=== PATIENT | male | born 1980 | race Caucasian/White ===

== ENCOUNTER → 2018-04-22 11:46 | Outpatient (CLI) | payer OTHER, SELFPAY ==
[2018-04-22 13:14] LABS: Basophils % 0.4 % (0.1-2.0); Eosinophils % 0.6 % (0.1-12.0); Hematocrit 39.6 % (42.0-52.0); Hemoglobin 13.7 g/dL (14.1-18.0); Lymphocytes # 1.3 K/mm3 (0.7-4.5); Mean Corpuscular HGB Conc 34.6 g/dL (31.8-35.4); Mean Corpuscular Hemoglobin 35.9 pg (27.0-31.2); Mean Corpuscular Volume 103.9 fl (80-94); Mean Platelet Volume 7.1 fl (7.4-10.4); Monocytes # 0.4 K/mm3 (0.1-1.0); Monocytes % 6.9 % (1.7-9.3); Neutrophils # 3.8 K/mm3 (1.8-7.8); Neutrophils % 69.1 % (37.0-80.0); Platelet Count 257 K/mm3 (142-424); Red Blood Count 3.81 M/mm3 (4.60-6.20); Red Cell Distribution Width 13.4 % (11.5-17.5); White Blood Count 5.5 K/mm3 (4.8-10.8)
[2018-04-22 14:23] LABS: Alanine Aminotransferase 184 U/L (12-78); Albumin Level 3.9 gm/dL (3.4-5.0); Alkaline Phosphatase 169 U/L (46-116); Anion Gap 18.4 mEq/L (5-15); Aspartate Amino Transferase 200 U/L (15-37); Bilirubin,Total 0.7 mg/dL (0.2-1.0); Blood Urea Nitrogen 5 mg/dL (7-18); Calcium 8.7 mg/dL (8.5-10.1); Carbon Dioxide 25 mmol/L (21.0-32.0); Chloride 102 mmol/L (98-107); Chol/HDL Ratio 4.5 (1-3.5); Cholesterol 171 mg/dL (140-200); Estimated Glomerular Filt Rate 95 ml/min (>60); Free T4 (Free Thyroxine) 1.08 ng/dl (0.76-1.46); GFR (African American) 115 ML/MIN (>60); Globulin 4.1 gm/dl (1.3-3.2); Glucose 158 mg/dL (74-106); HDL Cholesterol 38 mg/dL (27-67); LDL Cholesterol 106 mg/dL (0-130); Potassium 3.4 mmoL/L (3.5-5.1); Sodium 142 mmol/L (136-145); Thyroid Stimulating Hormone 1.81 uIU/ml (0.358-3.740); Triglycerides 137 mg/dL (30-200); Uric Acid 9.7 mg/dL (2.6-7.2); VLDL Cholesterol 27 mg/dL (0-40)
[2018-04-22 14:42] LABS: C-Reactive Protein < 0.2 mg/L (0.0-0.9)
[2018-04-22 15:18] LABS: Erythrocyte Sedimentation Rate 25 mm/hr (0-15)
[2018-04-24 07:50] LABS: Hemoglobin A1C 5.4 % (0.0-7.0)
[2018-04-25 08:25] LABS: Iron 219 ug/dL (38-169); UIBC 137 ug/dL (111-343)
[2018-04-25 09:21] LABS: Hep A Ab, IgM Negative (Negative); Hepatitis B Core Antibody IgM Negative (Negative); Hepatitis B Surface Antigen Negative (Negative)
[2018-04-26 13:03] LABS: Vitamin D 25 Hydroxy 43.1 ng/mL (30.0-100.0)
[2018-04-26 13:04] LABS: Hepatitis C Antibody 0.2 s/co ratio (0.0-0.9); Iron Saturation 62 % (15-55)
== END ==
PROVIDERS: Visit Provider Nurse Practitioner Family
DX: M25.50 Pain in unspecified joint (principal); R53.83 Other fatigue; M10.9 Gout, unspecified
CPT/HCPCS: 36415; 80053; 80061; 80074; 82652; 83036; 83540; 83550; 84439; 84443; 84550; 85025; 85651; 86140

== ENCOUNTER 2020-07-28 11:36 | Emergency (ER) | payer OTHER, SELFPAY ==
[2020-07-28 12:04] VITALS: BP 139/93; PULSE 84; RESP 16; TEMP 37; O2SAT 98; BMI 25.8
[2020-07-28 12:05] LABS: Apearance,Urine Clear (Clear); Bilirubin,Urine Negative (Negative); Blood, Urine Negative (Negative); Color,Urine Yellow (Yellow); Glucose,Urine (UA) Negative (Negative); Ketones,Urine Negative (Negative); Protein,Urine Negative (Negative); UTC Leukocyte Esterase,Urine Negative (Negative); UTC Nitrate,Urine Negative (Negative); Urobilinogen,Urine 2 EU/dl (0.2)
--- NOTE | 2020-07-28 12:37 | XR_ITS ---
PROCEDURE: XR CHEST 2V CLINICAL HISTORY: chest pain Left-sided chest pain COMPARISON: No exams were available for comparison FINDINGS: The cardiomediastinal silhouette and pulmonary vascularity are within normal limits. The lungs are clear without infiltrates, suspicious nodules, or pleural effusions. No acute bony abnormalities. IMPRESSION: No acute findings. Dictated by: Eduar Carias MD 07/28/2020 13:48 Eduar Carias MD in [place] 07/28/2020 13:48
--- NOTE | 2020-07-28 13:02 | HMH.EDUTC ---
[facility] [place]ression: Epigastric abdominal pain Disposition: Home, Self-Care Condition on Discharge: Good Instructions: DI for Abdominal Pain-Adult, DI for Acute Abdominal Pain Additional Instructions: Drink plenty of fluids. Take tylenol or ibuprofen for pain or fever. Take the medications as directed. Follow up with your regular doctor. GO TO THE ER FOR ANY WORSENING SYMPTOMS Prescriptions: Ondansetron [Zofran 4mg ODT] 4 mg PO Q8HP PRN #20 tab.rapdis PRN Reason: Nausea Transmission Status: Received by [facility] Famotidine [Pepcid 20mg Tablet] 20 mg PO DAILY 30 Days #30 tab Transmission Status: Received by [facility] Referrals: PCP,No [Primary Care Provider] - Forms: Work/School Release Time of Disposition: 13:06 Medical Decision Making - Medical Records Medical records reviewed: No: I reviewed the patient's medical records. - [place]ko Inquiry Pt receiving controlled substance: No Vital Signs: 07/28/20 12:04 07/28/20 13:21 Temperature 98.6 F 98.6 F Temperature Source Oral Oral Pulse Rate 84 Pulse Rate [Right Radial] 84 Respiratory Rate 16 16 Blood Pressure 139/93 H Blood Pressure [Right Arm] 139/93 H Blood Pressure Mean [Right Arm] 108 02 Sat by Pulse Oximetry 98 Oxygen Delivery Method Room Air Room Air - Lab Data Lab results reviewed: Yes: I reviewed the patient's lab results. Lab Results 07/28/20 12:04: Urine Color Yellow, Urine Appearance Clear, Urine pH 6.0, Ur Specific [place] 1.020, Urine Protein Negative, Urine Glucose (UA) Negative, Urine Ketones Negative, Urine Blood Negative, Urine Nitrate Negative, Urine Bilirubin Negative, Urine Urobilinogen 2, Ur Leukocyte Esterase Negative 07/28/20 12:54: WBC 4.4 L, RBC 4.51 L, Hgb 14.5, Hct 42.5, MCV 94.1 H, MCH 32.2 H, MCHC 34.2, RDW 12.7, Plt Count 317, MPV 7.2 L, Neut % (Auto) 54.9, Lymph % (Auto) 33.5, [place] % (Auto) 7.1, Eos % (Auto) 3.7, Baso % (Auto) 0.8, Neut # (Auto) 2.4, Lymph # (Auto) 1.5, [place] # (Auto) 0.3, Eos # (Auto) 0.2, Baso # (Auto) 0.0 07/28/20 12:54: Sodium 141, Potassium 4.0, Chloride 106, Carbon Dioxide 24, Anion Gap 15.0, BUN 13, Creatinine 0.90, Estimated Creat Clear 127, Estimated GFR 94, Est GFR ( Amer) 114, Glucose 96, Calcium 9.7, Total Bilirubin 0.5, AST 29, ALT 27, Alkaline Phosphatase 80, Total Protein 8.7 H, Albumin 5.1 H, Globulin 3.6 H, Albumin/Globulin Ratio 1.4, Amylase 62, Lipase 56 Result diagrams: 07/28/20 12:54 07/28/20 12:54 Medical Decision Narrative: He refused to be transferred to the er for further evaluation. [facility] [place] - General Stated complaint: sharp pain left side under ribs Time Seen by Provider: 07/28/20 13:02 Mode of Arrival: Ambulatory Source of Information: Patient Limitations: No Limitations Description of Symptoms (Recalled from Triage Doc. by RN): pain in left side, just under ribcage HEENT Symptoms (Recalled from RN notes): No Resp Symptoms (Recalled from RN notes): No Skin Symptoms (Recalled from RN notes): No MS Symptoms (Recalled from RN notes): Yes Functional Status (Recalled from RN notes): na - History of Present Illness Provider Complaint: He c/o epigastric abdominal pain on and off for the past 1 month. He has had some nausea at times also. He denies any diarrhea or constipation. - Related Data Previous Rx's Medication Instructions Recorded Naproxen [Naproxen 500mg tab] 500 mg PO BID PRN #20 tablet 05/10/18 allopurinol 100 mg tablet 100 mg PO DAILY #30 tab 09/06/18 colchicine 0.6 mg tablet 0.6 mg PO BID #30 tab 09/06/18 Famotidine [Pepcid 20mg Tablet] 20 mg PO DAILY 30 Days #30 tab 07/28/20 Ondansetron [Zofran 4mg ODT] 4 mg PO Q8HP PRN #20 tab.rapdis 07/28/20 Allergies Allergy/AdvReac Type Severity Reaction Status Date / Time No Known Allergies Allergy Verified 04/13/18 10:37 - Worker's Comp Is this a Worker's Comp case?: No H History - Hepatitis A Screen [place]
[2020-07-28 13:21] VITALS: BP 139/93; PULSE 84; RESP 16; TEMP 37; O2SAT 98
[2020-07-28 13:29] LABS: Basophils % 0.8 % (0.1-2.0); Eosinophils # 0.2 K/mm3 (0.0-0.4); Eosinophils % 3.7 % (0.1-12.0); Hematocrit 42.5 % (42.0-52.0); Hemoglobin 14.5 g/dL (14.1-18.0); Lymphocytes # 1.5 K/mm3 (0.7-4.5); Lymphocytes % 33.5 % (10-50); Mean Corpuscular HGB Conc 34.2 g/dL (31.8-35.4); Mean Corpuscular Hemoglobin 32.2 pg (27.0-31.2); Mean Corpuscular Volume 94.1 fl (80-94); Mean Platelet Volume 7.2 fl (7.4-10.4); Monocytes # 0.3 K/mm3 (0.1-1.0); Monocytes % 7.1 % (1.7-9.3); Neutrophils # 2.4 K/mm3 (1.8-7.8); Neutrophils % 54.9 % (37.0-80.0); Platelet Count 317 K/mm3 (142-424); Red Blood Count 4.51 M/mm3 (4.60-6.20); Red Cell Distribution Width 12.7 % (11.5-17.5); White Blood Count 4.4 K/mm3 (4.8-10.8)
[2020-07-28 14:04] LABS: Alanine Aminotransferase 27 U/L (12-78); Albumin Level 5.1 g/dl (3.5-5.0); Albumin/Globulin Ratio 1.4 (1.1-1.8); Alkaline Phosphatase 80 U/L (38-126); Amylase 62 U/L (30-110); Aspartate Amino Transferase 29 U/L (17-59); Bilirubin,Total 0.5 mg/dl (0.2-1.3); Blood Urea Nitrogen 13 mg/dl (9-20); Calcium 9.7 mg/dl (8.4-10.2); Carbon Dioxide 24 mmol/L (22.0-30.0); Chloride 106 mmol/L (98-107); Creatinine Clearance Estimated 127 mL/min (50-200); Estimated Glomerular Filt Rate 94 ml/min (>60); GFR (African American) 114 ML/MIN (>60); Globulin 3.6 g/dL (1.3-3.2); Glucose 96 mg/dl (74-100); Lipase 56 U/L (23-300); Sodium 141 mmol/L (136-145); Total Protein,Serum 8.7 g/dl (6.3-8.2)
== END 2020-07-28 13:22 | disposition home or self-care (01) ==
PROVIDERS: Emergency Provider Nurse Practitioner Family
DX: R10.13 Epigastric pain (principal); Z87.891 Personal history of nicotine dependence
CPT/HCPCS: 71046; 80053; 81003; 82150; 83690; 85025; 99202; G0463

== ENCOUNTER 2020-09-06 12:08 | Emergency (ER) | payer OTHER, SELFPAY ==
[2020-09-06 13:10] VITALS: BP 141/96; PULSE 82; RESP 19; TEMP 37; O2SAT 98; BMI 25.1
--- NOTE | 2020-09-06 13:49 | HMH.EDUTC ---
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, right wrist Disposition: Home, Self-Care Condition on Discharge: Good Instructions: DI for Gout, Higher Vitamin C Intake Associated With Lower Risk of Gout Prescriptions: allopurinoL [Allopurinol 100mg tablet] 100 mg PO DAILY #30 tab Prescription Printed predniSONE [Prednisone 20mg Tab] 20 mg PO BID #10 tab Prescription Printed Referrals: Provider,Referral, MD [Primary Care Provider] - Time of Disposition: 13:57 Medical Decision Making - Cheko Inquiry Pt receiving controlled substance: No Vital Signs: 09/06/20 13:10 Temperature 98.6 F Temperature Source Oral Pulse Rate [Right Brachial] 82 Respiratory Rate 19 Blood Pressure [Right Arm] 141/96 H Blood Pressure Mean [Right Arm] 111 Blood Pressure Source [Right Arm] Automatic Cuff Blood Pressure Position [Right Arm] Sitting 02 Sat by Pulse Oximetry 98 Oxygen Delivery Method Room Air Orders (Tests/Meds): ED MEDICATIONS Discontinued Medications Generic Name Dose Route Start Last Admin Trade Name Freq PRN Reason Stop Dose Admin Dexamethasone Sodium Phosphate 4 mg 09/06/20 13:46 Dexamethasone 4mg/Ml 1ml Vial IM 09/06/20 13:47 ONCE ONE Ketorolac Tromethamine 30 mg 09/06/20 13:46 Ketorolac 30mg/Ml Vial IM 09/06/20 13:47 ONCE ONE [facility] [place] - General Chief complaint: Urgent [facility] Stated complaint: Rt hand pain Time Seen by Provider: 09/06/20 13:50 Mode of Arrival: Ambulatory Source of Information: Patient Limitations: No Limitations Description of Symptoms (Recalled from Triage Doc. by RN): PATIENT C/O GOUT IN RIGHT ARM AND HAND X 2 WEEKS HEENT Symptoms (Recalled from RN notes): No Resp Symptoms (Recalled from RN notes): No Skin Symptoms (Recalled from RN notes): No MS Symptoms (Recalled from RN notes): Yes Functional Status (Recalled from RN notes): WNL - History of Present Illness Provider Complaint: 39 yr old male presents for rt hand and arm pain. pt states no injury and hx of gout. pt states he did take meds for gout but his pcp left so his script ran out 3 days ago. - Related Data Previous Rx's Medication Instructions Recorded Naproxen [Naproxen 500mg tab] 500 mg PO BID PRN #20 tablet 05/10/18 colchicine 0.6 mg tablet 0.6 mg PO BID #30 tab 09/06/18 Famotidine [Pepcid 20mg Tablet] 20 mg PO DAILY 30 Days #30 tab 07/28/20 Ondansetron [Zofran 4mg ODT] 4 mg PO Q8HP PRN #20 tab.rapdis 07/28/20 allopurinoL [Allopurinol 100mg 100 mg PO DAILY #30 tab 09/06/20 tablet] predniSONE [Prednisone 20mg 20 mg PO BID #10 tab 09/06/20 Tab] Allergies Allergy/AdvReac Type Severity Reaction Status Date / Time No Known Allergies Allergy Verified 04/13/18 10:37 - Worker's Comp Is this a Worker's Comp case?: No [facility] History - Hepatitis A Screen Drug use history?: No High risk sexual behaviors?: No History of sexually transmitted infection?: No Currently employed?: No Childcare worker?: No Do you have indoor plumbing?: Yes Do you have electricity?: Yes Attestation statement:: This patient has been screened for Hepatitis A risk factors. I have reviewed the patient's past medical history: Yes Medical History: Reports:: Hypertension Other Surgeries: Yes: No Previous Surgery Amputation: No Fractures: Yes - Social History Smoking Status: Current every day smoker Tobacco Type: cigarettes # Packs/Day (cigarettes): 1 Alcohol Intake: current Alcohol Intake Frequency:: 3 or more drinks per day Occupational Status: other Family Hx:: Diabetes, Hypertension, Asthma ROS Obtained: Yes Systems reviewed as appropriate & no additional complaints - Constitutional Constitutional: Reports system reviewed and no additional complaints, except as docu, Denies fever(s) - Eyes Eyes: Reports syst
[2020-09-06 14:00] VITALS: BP 141/96; PULSE 82; RESP 19; TEMP 37; O2SAT 98
== END 2020-09-06 14:02 | disposition home or self-care (01) ==
PROVIDERS: Emergency Provider Nurse Practitioner Family
DX: M10.431 Other secondary gout, right wrist (principal); F17.210 Nicotine dependence, cigarettes, uncomplicated; Z79.899 Other long term (current) drug therapy
CPT/HCPCS: 96372; 99202; G0463

== ENCOUNTER 2020-09-15 21:36 | Emergency (ER) | payer OTHER, SELFPAY ==
[2020-09-15 21:50] VITALS: BP 140/81; PULSE 108; RESP 17; TEMP 37.1; O2SAT 96; BMI 29.0
--- NOTE | 2020-09-15 22:02 | HMH.EDGENADL ---
ED Disposition Clinical Impression: Gout attack Qualifiers: Gout site: hand Gout etiology: unspecified cause Laterality: right Qualified Code(s): M10.9 - Gout, unspecified Disposition: Home, Self-Care Condition on Discharge: Good Instructions: DI for Gout Additional Instructions: use meds and see pcp for follo wup Prescriptions: Colchicine [Colcrys 0.6mg tablet] 0.6 mg PO DIRECTED #10 tab Transmission Status: Pending to [facility] predniSONE [Prednisone 20mg Tab] 20 mg PO BID #10 tab [facility] Status[facility] Referrals: Provider,Referral, [Primary Care Provider] - - Critical Care Critical Care Time: No Attestation: On 09/15/20, the high probability of a clinically significant, sudden or life threatening deterioration of the following system(s) required my full and direct attention, intervention and personal management. The time I documented below is in addition to time spent performing reported procedures but includes the following listed in this critical care notation. Medical Decision Making - Medical Records Medical records reviewed: Yes: I reviewed the patient's medical records. - [place]ko Inquiry Pt receiving controlled substance: No Vital Signs: 09/15/20 21:50 Temperature 98.8 F Temperature Source Oral Pulse Rate [Right Brachial] 108 H Respiratory Rate 17 Blood Pressure [Right Arm] 140/81 Blood Pressure Mean [Right Arm] 100 Blood Pressure Source [Right Arm] Automatic Cuff Blood Pressure Position [Right Arm] Sitting 02 Sat by Pulse Oximetry 96 Oxygen Delivery Method Room Air - Lab Data Lab results reviewed: Yes: I reviewed the patient's lab results. Lab Results 09/15/20 22:00: WBC 7.9, RBC 4.05 L, Hgb 12.8 L, Hct 37.4 L, MCV 92.5, MCH 31.7 H, MCHC 34.3, RDW 12.9, Plt Count 326, MPV 6.9 L, Neut % (Auto) 67.8, Lymph % (Auto) 20.7, [place] % (Auto) 7.5, Eos % (Auto) 3.7, Baso % (Auto) 0.3, Neut # (Auto) 5.4, Lymph # (Auto) 1.6, [place] # (Auto) 0.6, Eos # (Auto) 0.3, Baso # (Auto) 0.0 06/07/21 22:00: Sodium 135 L, Potassium 3.4 L, Chloride 101, Carbon Dioxide 25, Anion Gap 12.4, BUN 9, Creatinine 0.70, Estimated Creat Clear 164, Estimated GFR 126, Est GFR ( Amer) 152, Glucose 103 H, Calcium 8.9, Total Bilirubin 0.7, AST 28, ALT 23, Alkaline Phosphatase 106, C-Reactive Protein 51.9 H, Total Protein 7.8, Albumin 4.5, Globulin 3.3 H, Albumin/Globulin Ratio 1.4 Result diagrams: 09/15/20 22:00 09/15/20 22:00 Orders (Tests/Meds): ED MEDICATIONS Discontinued Medications Generic Name Dose Route Start Last Admin Trade Name Purvi PRN Reason Stop Dose Admin Ketorolac Tromethamine 30 mg 09/15/20 22:04 09/15/20 22:08 Ketorolac 30mg/Ml Vial IV 09/15/20 22:05 30 mg ONCE ONE Administration Methylprednisolone Sodium Succinate 125 mg 09/15/20 22:04 09/15/20 22:08 Methylprednisolone Sod Succ 125mg Vial IV 09/15/20 22:05 125 mg ONCE ONE Administration ORDERS Category Date Time Status C-Reactive Protein Stat Lab 09/15/20 22:00 Results Complete Blood Count Auto Diff Stat Lab 09/15/20 22:00 Results Comprehensive Metabolic Panel Stat Lab 09/15/20 22:00 Results Erythrocyte Sedimentation Rate Stat Lab 09/15/20 22:00 Results Procalcitonin Stat Lab 09/15/20 22:00 Results Uric Acid Stat Lab 09/15/20 22:00 Results Medical Decision Narrative: hx of gout and has acute episode General Adult HPI - General Chief complaint: PAIN Stated complaint: r hAND SWOLLEN Time Seen by Provider: 09/15/20 22:02 Mode of Arrival: Family Vehicle Source of Information: Patient, Medical Record Limitations: No Limitations Description of Symptoms (Recalled from ER Triage Doc. by RN): right hand swelling from gout x 1 month; received steroid shot last week and improved slightly but feels he was prescribed the wrong pills to take afterwards because they didn't help - History of Present Illness HPI narrative: acute swelling pain rt
[2020-09-15 22:22] LABS: Chloride 101 mmol/L (98-107); Potassium 3.4 mmoL/L (3.5-5.1); Sodium 135 mmol/L (136-145)
[2020-09-15 22:24] LABS: Basophils % 0.3 % (0.1-2.0); Eosinophils # 0.3 K/mm3 (0.0-0.4); Eosinophils % 3.7 % (0.1-12.0); Hematocrit 37.4 % (42.0-52.0); Hemoglobin 12.8 g/dL (14.1-18.0); Lymphocytes # 1.6 K/mm3 (0.7-4.5); Lymphocytes % 20.7 % (10-50); Mean Corpuscular HGB Conc 34.3 g/dL (31.8-35.4); Mean Corpuscular Hemoglobin 31.7 pg (27.0-31.2); Mean Corpuscular Volume 92.5 fl (80-94); Mean Platelet Volume 6.9 fl (7.4-10.4); Monocytes # 0.6 K/mm3 (0.1-1.0); Monocytes % 7.5 % (1.7-9.3); Neutrophils # 5.4 K/mm3 (1.8-7.8); Neutrophils % 67.8 % (37.0-80.0); Platelet Count 326 K/mm3 (142-424); Red Blood Count 4.05 M/mm3 (4.60-6.20); Red Cell Distribution Width 12.9 % (11.5-17.5); White Blood Count 7.9 K/mm3 (4.8-10.8)
[2020-09-15 22:25] LABS: Alanine Aminotransferase 23 U/L (12-78); Albumin Level 4.5 g/dl (3.5-5.0); Albumin/Globulin Ratio 1.4 (1.1-1.8); Alkaline Phosphatase 106 U/L (38-126); Anion Gap 12.4 mEq/L (5-15); Aspartate Amino Transferase 28 U/L (17-59); Bilirubin,Total 0.7 mg/dl (0.2-1.3); Blood Urea Nitrogen 9 mg/dl (9-20); Carbon Dioxide 25 mmol/L (22.0-30.0); Creatinine Clearance Estimated 164 mL/min (50-200); Estimated Glomerular Filt Rate 126 ml/min (>60); GFR (African American) 152 ML/MIN (>60); Globulin 3.3 g/dL (1.3-3.2); Total Protein,Serum 7.8 g/dl (6.3-8.2)
[2020-09-15 22:26] LABS: Calcium 8.9 mg/dl (8.4-10.2); Glucose 103 mg/dl (74-100)
[2020-09-15 22:31] LABS: C-Reactive Protein 51.9 mg/L (0-4)
[2020-09-15 22:46] LABS: Uric Acid 5.9 mg/dl (3.5-8.5)
[2020-09-15 22:52] LABS: Procalcitonin 0.092 ng/mL (0.0-2.0)
[2020-09-15 22:56] LABS: Erythrocyte Sedimentation Rate 63 mm/hr (0-15)
[2020-09-15 23:28] VITALS: BP 150/75; PULSE 81; RESP 18; TEMP 36.8; O2SAT 98
== END 2020-09-15 23:30 | disposition home or self-care (01) ==
PROVIDERS: Emergency Provider Emergency Medicine
DX: M10.041 Idiopathic gout, right hand (principal); I10 Essential (primary) hypertension; F17.210 Nicotine dependence, cigarettes, uncomplicated
CPT/HCPCS: 80053; 84145; 84550; 85025; 85651; 86140; 96375; 99282

== ENCOUNTER 2021-01-06 14:51 | Emergency (ER) | payer OTHER, SELFPAY ==
[2021-01-06 14:55] VITALS: BP 160/98; PULSE 99; RESP 20; TEMP 37.1; O2SAT 98; BMI 26.6
--- NOTE | 2021-01-06 15:16 | HMH.EDUTC ---
[facility] [place] Condition on Discharge: Fair <Lilliam Segundo - Last Filed: 01/06/21 18:11> Condition on Discharge: Good Time of Disposition: 15:34 <Valerie Smith - Last Filed: 01/06/21 23:01> Clinical Impression: LUQ abdominal pain Disposition: Left Against Medical Advice Instructions: DI for Acute Abdominal Pain Prescriptions: Dicyclomine HCl [Bentyl 10mg capsule] 10 mg PO Q6 PRN #12 cap PRN Reason: Cramping Transmission Status: Received by [facility] polyethylene glycoL 3350 [Miralax 17gm Packet] 17 gm PO DAILYP PRN #30 packet PRN Reason: Constipation Transmission Status: Received by [facility] Referrals: Arik Mckeon MD [Primary Care Provider] - Medical Decision Making - Medical Records Medical records reviewed: Yes: I reviewed the patient's medical records. - [place]ko Inquiry Pt receiving controlled substance: No <Lilliam Segundo - Last Filed: 01/06/21 18:11> Vital Signs: 01/06/21 14:55 01/06/21 15:32 01/06/21 16:07 Temperature 98.7 F 98.7 F 98 F Temperature Source Oral Oral Oral Pulse Rate 78 Pulse Rate [Left] 99 H 93 H Respiratory Rate 20 16 16 Blood Pressure 135/74 Blood Pressure [Right Arm] 160/98 H 161/100 H Blood Pressure Mean [Right Arm] 118 120 Blood Pressure Source [Right Arm] Automatic Cuff Blood Pressure Position Sitting Blood Pressure Position [Right Arm] Sitting 02 Sat by Pulse Oximetry 98 97 Oxygen Delivery Method Room Air Room Air [facility] [place] <RatnaLilliam - Last Filed: 01/06/21 18:11> - General Mode of Arrival: Ambulatory Source of Information: Patient Limitations: No Limitations Description of Symptoms (Recalled from Triage Doc. by RN): pt states he has been having L sided abd pain at the base of his ribs for three months. pt states the pain is continuos, bloating and radiates to his chest and his upper back. pt c/o some n/v/d. HEENT Symptoms (Recalled from RN notes): No Resp Symptoms (Recalled from RN notes): No Skin Symptoms (Recalled from RN notes): No MS Symptoms (Recalled from RN notes): No (upper back pain) Functional Status (Recalled from RN notes): na - History of Present Illness Provider Complaint: Patient states that he has been having pain in the left side of his upper abdomen on and off for a couple months but it has got worse and more consistant over the last couple of days and feels like his stomach is swollen, sore to the touch and now pain is radiating in to back and chest area and hurts when he moves certain ways or touches it State that he has episodes of N/V/D - Worker's Comp Is this a Worker's Comp case?: No <Valerie Smith E - Last Filed: 01/06/21 23:01> - General Stated complaint: left side pains Time Seen by Provider: 01/06/21 15:00 - Related Data Home Medications Medication Instructions Recorded Confirmed buprenorphine 8 mg-naloxone 2 mg 2 tab SUBLINGUAL DAILY tab 12/09/20 12/09/20 sublingual tablet Previous Rx's Medication Instructions Recorded Colchicine [Colcrys 0.6mg tablet] 0.6 mg PO DIRECTED #10 tab 09/15/20 diclofenac sodium 1 % topical gel 2 g TOPICAL QID #100 g 12/09/20 gabapentin 100 mg capsule 100 mg PO TID #90 cap 12/09/20 hydrocodone 5 mg-acetaminophen 325 1 tab PO BID #60 tab 12/09/20 mg tablet lidocaine 5 % topical patch 1 patch TOPICAL DAILY #30 each 12/09/20 Dicyclomine HCl [Bentyl 10mg 10 mg PO Q6 PRN #12 cap 01/06/21 capsule] polyethylene glycoL 3350 [Miralax 17 gm PO DAILYP PRN #30 packet 01/06/21 17gm Packet] Allergies Allergy/AdvReac Type Severity Reaction Status Date / Time No Known Allergies Allergy Verified 12/09/20 15:40 [facility] History - Hepatitis A Screen Drug use history?: No High risk sexual behaviors?: No History of sexually transmitted infection?: No Currently employed?: No Childcare worker?: No Do you have indoor plumbing?: Yes Do you have electricity?: Yes I have reviewed the patient's past medical history: Yes Medical Hi
[2021-01-06 15:32] VITALS: BP 161/100; PULSE 93; RESP 16; TEMP 37.1; O2SAT 97; BMI 25.8
--- NOTE | 2021-01-06 15:45 | HMH.EDGENADL ---
ED Disposition Clinical Impression: LUQ abdominal pain Disposition: Left Against Medical Advice Condition on Discharge: Fair Instructions: DI for Acute Abdominal Pain Prescriptions: Dicyclomine HCl [Bentyl 10mg capsule] 10 mg PO Q6 PRN #12 cap PRN Reason: Cramping Transmission Status: Pending to [facility] polyethylene glycoL 3350 [Miralax 17gm Packet] 17 gm PO DAILYP PRN #30 packet PRN Reason: Constipation Transmission Status: Pending to [facility] Referrals: Arik Mckeon MD [Primary Care Provider] - Time of Disposition: 16:04 - Critical Care Critical Care Time: No Attestation: On 01/06/21, the high probability of a clinically significant, sudden or life threatening deterioration of the following system(s) required my full and direct attention, intervention and personal management. The time I documented below is in addition to time spent performing reported procedures but includes the following listed in this critical care notation. Medical Decision Making - Medical Records Medical records reviewed: Yes: I reviewed the patient's medical records. - [place]ko Inquiry Pt receiving controlled substance: No Vital Signs: 01/06/21 14:55 01/06/21 15:32 Temperature 98.7 F 98.7 F Temperature Source Oral Oral Pulse Rate [Left] 99 H 93 H Respiratory Rate 20 16 Blood Pressure [Right Arm] 160/98 H 161/100 H Blood Pressure Mean [Right Arm] 118 120 Blood Pressure Source [Right Arm] Automatic Cuff Blood Pressure Position [Right Arm] Sitting 02 Sat by Pulse Oximetry 98 97 Oxygen Delivery Method Room Air Orders (Tests/Meds): ORDERS Category Date Time Status CT abdomen pelvis w con Stat Cat Scan 01/06/21 15:28 Ordered Complete Blood Count Auto Diff Stat Lab 01/06/21 15:28 Ordered Comprehensive Metabolic Panel Stat Lab 01/06/21 15:28 Ordered Lipase Stat Lab 01/06/21 15:28 Ordered UA [Urinalysis and Microscopic] Stat Lab 01/06/21 15:28 Ordered Medical Decision Narrative: In summary this is a 40-year-old male presenting to the emergency department with left upper quadrant abdominal pain. Patient clinically stable on arrival. Vital signs within normal limits. Differential diagnoses include constipation, colitis, diverticulosis, diverticulitis, splenomegaly, pancreatitis, alcoholic cirrhosis. Will obtain CBC, CMP, lipase, urinalysis, CT scan of the abdomen and pelvis Shortly after my evaluation patient decided he could not stay in the emergency department any longer. He said that his boss required him to return to work, or else he would be fired. He understood the risks of leaving at this time. There could be serious intra-abdominal pathology. There is the risk of worsening illness and possible . He expressed understanding. Says his pain is tolerable. He will return for any new or worsening symptoms. Sent MiraLAX and Bentyl to his pharmacy. Patient signed out AGAINST MEDICAL ADVICE General Adult HPI - General Chief complaint: Abdominal Pain Stated complaint: left side pains Time Seen by Provider: 01/06/21 15:45 Mode of Arrival: Ambulatory Source of Information: Patient Limitations: No Limitations Description of Symptoms (Recalled from ER Triage Doc. by RN): pt states he has been having L sided abd pain at the base of his ribs for three months. pt states the pain is continuos, bloating and radiates to his chest and his upper back. pt c/o some n/v/d. - History of Present Illness HPI narrative: 40-year-old male presenting to the emergency department with abdominal pain. Pain is located in the left upper quadrant. Does not radiate. Is intermittent and cramping. Feels like his abdomen is swollen. Has been present on and off for about the last year, but has gotten more frequent over the last few days. He says, jokingly, that alcohol makes it better. Nothing else makes it better. Has had diarrhea since he recovered from COVID-19 1 month ago. Does not suffer
[2021-01-06 16:07] VITALS: BP 135/74; PULSE 78; RESP 16; TEMP 36.6; O2SAT 98
== END 2021-01-06 16:08 | disposition left against medical advice (07) ==
LOC: UTC 14:54 → ER 15:25
PROVIDERS: Emergency Provider Nurse Practitioner; PCP Emergency Medicine
DX: R10.12 Left upper quadrant pain (principal); I10 Essential (primary) hypertension; F17.210 Nicotine dependence, cigarettes, uncomplicated; R19.7 Diarrhea, unspecified; Z86.16 Personal history of COVID-19
CPT/HCPCS: 99281

== ENCOUNTER 2021-01-07 09:58 | Emergency (ER) | payer OTHER, SELFPAY ==
[2021-01-07 09:59] VITALS: BP 158/91; PULSE 98; RESP 18; TEMP 36.8; O2SAT 100; BMI 25.8
--- NOTE | 2021-01-07 10:16 | CT_ITS ---
PROCEDURE INFORMATION: Exam: CT Abdomen And Pelvis With Contrast Exam date and time: 01/07/2021 10:16 AM Age: 40 years old Clinical indication: Abdominal pain; Generalized; Additional info: Luq pain TECHNIQUE: Imaging protocol: Computed tomography of the abdomen and pelvis with contrast. Radiation optimization: All CT scans at this facility use at least one of these dose optimization techniques: automated exposure control; mA and/or kV adjustment per patient size (includes targeted exams where dose is matched to clinical indication); or iterative reconstruction. Contrast material: ISOVUE; Contrast volume: 75 ml; Contrast route: IV; COMPARISON: CR XR CHEST 2V 07/28/2020 1:04 PM FINDINGS: Liver: The liver is normal in appearance, without evidence of mass or intrahepatic bile duct dilatation. Gallbladder and bile ducts: The gallbladder is normal appearance, without evidence of gallbladder wall thickening or pericholecystic fluid. Pancreas: The pancreas is normal in appearance, without evidence of mass, cyst, peripancreatic inflammatory change, or pancreatic duct dilatation. Spleen: The spleen is normal in appearance. Adrenal glands: Both adrenal glands are normal in appearance, without evidence of mass or focal abnormality. Kidneys and ureters: There is a punctate nonobstructing calculus in the right kidney. There is no evidence of hydronephrosis. The left kidney is normal in appearance, without evidence of nephrolithiasis or hydronephrosis. Stomach and bowel: The stomach is normal in appearance, without evidence of mass or wall thickening. The small bowel is normal in appearance, without evidence of wall thickening, perienteric inflammatory change, or small bowel obstruction. The terminal ileum and cecum are within normal limits. The ascending, transverse, and descending colon are within normal limits. Appendix: No evidence of appendicitis. The appendix is not clearly identified. Intraperitoneal space: Unremarkable. No free air. No significant fluid collection. Vasculature: Unremarkable. No abdominal aortic aneurysm. Lymph nodes: Unremarkable. No enlarged lymph nodes. Urinary bladder: Unremarkable as visualized. Reproductive: Unremarkable as visualized. Bones/joints: Unremarkable. No acute fracture. Soft tissues: Unremarkable. IMPRESSION: 1. No acute abnormality. 2. Punctate nonobstructing calculus in the right kidney.
--- NOTE | 2021-01-07 10:23 | HMH.EDABDPAI ---
ED Disposition Clinical Impression: Left upper quadrant abdominal pain Disposition: Home, Self-Care Condition on Discharge: Good Instructions: DI for Acute Abdominal Pain Additional Instructions: Return the emergency room for worsening pain bleeding vomiting or any other concerns within the next 8 hours otherwise follow-up with your primary care physician within the next few days. Consider follow-up with gastroenterology as well if your symptoms persist despite medical management. Prescriptions: Famotidine/Ca Carb/Mag Hydrox [Pepcid Complete Tablet Chew] 1 each PO BID PRN 20 Days #40 tab PRN Reason: Mild Pain Transmission Status: Pending to [facility] Referrals: Arik Mckeon MD [Primary Care Provider] - - Critical Care Critical Care Time: No Attestation: On 01/07/21, the high probability of a clinically significant, sudden or life threatening deterioration of the following system(s) required my full and direct attention, intervention and personal management. The time I documented below is in addition to time spent performing reported procedures but includes the following listed in this critical care notation. Medical Decision Making - Medical Records Medical records reviewed: Yes: I reviewed the patient's medical records. - Cheko Inquiry Pt receiving controlled substance: No Vital Signs: 01/07/21 09:59 Temperature 98.3 F Temperature Source Oral Pulse Rate [Right Radial] 98 H Respiratory Rate 18 Blood Pressure [Right Arm] 158/91 H Blood Pressure Mean [Right Arm] 113 Blood Pressure Source [Right Arm] Automatic Cuff Blood Pressure Position [Right Arm] Sitting 02 Sat by Pulse Oximetry 100 Oxygen Delivery Method Room Air - Lab Data Lab Results 01/07/21 10:09: WBC 5.0, RBC 4.57 L, Hgb 14.6, Hct 44.6, MCV 97.6 H, MCH 32.1 H, MCHC 32.8, RDW 13.0, Plt Count 326, MPV 7.0 L, Neut % (Auto) 62.1, Lymph % (Auto) 28.5, [place] % (Auto) 6.6, Eos % (Auto) 2.1, Baso % (Auto) 0.7, Neut # (Auto) 3.1, Lymph # (Auto) 1.4, [place] # (Auto) 0.3, Eos # (Auto) 0.1, Baso # (Auto) 0.0 01/07/21 10:09: Sodium 144, Potassium 3.3 L, Chloride 107, Carbon Dioxide 24, Anion Gap 16.3 H, BUN 10, Creatinine 0.80, Estimated Creat Clear 142, Estimated GFR 107, Est GFR ( Amer) 130, Glucose 166 H, Calcium 9.2, Total Bilirubin 0.8, AST 29, ALT 34, Alkaline Phosphatase 81, Total Protein 8.4 H, Albumin 4.8, Globulin 3.6 H, Albumin/Globulin Ratio 1.3, Lipase 119 Result diagrams: 01/07/21 10:09 01/07/21 10:09 Orders (Tests/Meds): ED MEDICATIONS Discontinued Medications Generic Name Dose Route Start Last Admin Trade Name Freq PRN Reason Stop Dose Admin Sodium Chloride 1,000 mls @ 999 mls/hr 01/07/21 10:30 01/07/21 11:12 Sod Chlor 0.9% 1000ml Bag IV 01/07/21 11:30 999 mls/hr .Q1H1M AUG[place]O Administration Iopamidol 75 ml 01/07/21 10:38 01/07/21 10:39 Iopamidol-370 (76%);100ml Bottle IV 01/07/21 10:39 75 ml ONCE ONE Administration Ketorolac Tromethamine 30 mg 01/07/21 11:11 01/07/21 11:12 Ketorolac 30mg/Ml Vial IV 01/07/21 11:12 30 mg ONCE ONE Administration Morphine Sulfate 4 mg 01/07/21 10:16 Morphine 4mg/Ml Syringe IV 01/07/21 10:17 ONCE ONE Ondansetron HCl 4 mg 01/07/21 10:16 Ondansetron 4mg Odt SL 01/07/21 10:17 ONCE ONE Ondansetron HCl 4 mg 01/07/21 11:16 01/07/21 11:16 Ondansetron 4mg/2ml Vial IV 01/07/21 11:17 4 mg ONCE ONE Administration Sodium Chloride 10 ml 01/07/21 10:38 01/07/21 10:39 Sodium Chloride 0.9% 10ml Syr (Rad Only) IV 01/07/21 10:39 10 ml ONCE ONE Administration Medical Decision Narrative: 40-year-old male presents with persistent left upper quadrant pain. Plan to continue work-up as initiated last night. He is in no acute distress on initial evaluation sitting comfortably in the room without any acute abdomen on exam. CT abdomen pelvis ordered and laboratory evaluation. Perforation ischemia obstruction splenic in
[2021-01-07 10:28] LABS: Basophils % 0.7 % (0.1-2.0); Eosinophils # 0.1 K/mm3 (0.0-0.4); Eosinophils % 2.1 % (0.1-12.0); Hematocrit 44.6 % (42.0-52.0); Hemoglobin 14.6 g/dL (14.1-18.0); Lymphocytes # 1.4 K/mm3 (0.7-4.5); Lymphocytes % 28.5 % (10-50); Mean Corpuscular HGB Conc 32.8 g/dL (31.8-35.4); Mean Corpuscular Hemoglobin 32.1 pg (27.0-31.2); Mean Corpuscular Volume 97.6 fl (80-94); Monocytes # 0.3 K/mm3 (0.1-1.0); Monocytes % 6.6 % (1.7-9.3); Neutrophils # 3.1 K/mm3 (1.8-7.8); Neutrophils % 62.1 % (37.0-80.0); Platelet Count 326 K/mm3 (142-424); Red Blood Count 4.57 M/mm3 (4.60-6.20)
[2021-01-07 10:32] LABS: Alanine Aminotransferase 34 U/L (12-78); Albumin Level 4.8 g/dl (3.5-5.0); Albumin/Globulin Ratio 1.3 (1.1-1.8); Alkaline Phosphatase 81 U/L (38-126); Anion Gap 16.3 mEq/L (5-15); Aspartate Amino Transferase 29 U/L (17-59); Bilirubin,Total 0.8 mg/dl (0.2-1.3); Blood Urea Nitrogen 10 mg/dl (9-20); Calcium 9.2 mg/dl (8.4-10.2); Carbon Dioxide 24 mmol/L (22.0-30.0); Chloride 107 mmol/L (98-107); Creatinine Clearance Estimated 142 mL/min (50-200); Estimated Glomerular Filt Rate 107 ml/min (>60); GFR (African American) 130 ML/MIN (>60); Globulin 3.6 g/dL (1.3-3.2); Glucose 166 mg/dl (74-100); Lipase 119 U/L (23-300); Potassium 3.3 mmoL/L (3.5-5.1); Sodium 144 mmol/L (136-145); Total Protein,Serum 8.4 g/dl (6.3-8.2)
--- NOTE | 2021-01-07 10:32 | PC.NURSE ---
pt to CT
[2021-01-07 11:00] VITALS: BP 133/85
[2021-01-07 12:00] VITALS: BP 139/88; PULSE 75; O2SAT 99
[2021-01-07 12:09] VITALS: BP 139/88; PULSE 78; RESP 18; TEMP 36.8; O2SAT 99
== END 2021-01-07 12:09 | disposition home or self-care (01) ==
PROVIDERS: Emergency Provider Emergency Medicine; PCP Emergency Medicine
DX: R10.12 Left upper quadrant pain (principal); I10 Essential (primary) hypertension; F17.210 Nicotine dependence, cigarettes, uncomplicated
CPT/HCPCS: 74177; 80053; 83690; 85025; 96365; 96375; 99283; J2405; Q9967

== ENCOUNTER 2021-04-28 17:31 | Emergency (ER) | payer OTHER, SELFPAY ==
[2021-04-28 18:39] VITALS: BP 165/103; PULSE 109; RESP 18; TEMP 36.8; O2SAT 100
[2021-04-28 19:00] VITALS: BP 151/101; PULSE 106; RESP 18; O2SAT 96
[2021-04-28 19:30] VITALS: BP 147/98; PULSE 111; RESP 18; O2SAT 96
--- NOTE | 2021-04-28 19:30 | HMH.EDGENADL ---
ED Disposition Clinical Impression: Low back pain Qualifiers: Chronicity: acute Back pain laterality: unspecified Sciatica presence: without sciatica Qualified Code(s): M54.50 - Low back pain, unspecified Disposition: Home, Self-Care Condition on Discharge: Fair Instructions: DI for Low Back Pain Additional Instructions: Percocet as prescribed for pain. Do not take hydrocodone while taking Percocet. Call primary care provider tomorrow for further care. Additional instructions for BACK PAIN: See your physician as soon as possible for further evaluation. Return immediately if back pain becomes intolerable, or if fever, numbness or weakness of your legs, loss of control of your bowels or bladder. Additional instructions for CONTROLLED SUBSTANCES: You have been prescribed a medication that is a controlled substance. Controlled substances include pain medications known as opiates and sedative nerve medications known as benzodiazepines. Tramadol, fioricet, and gabapentin are also controlled substances. Some common opiates include: Codeine (such as Tylenol #3) Hydrocodone (Vicodin, Lortab, Lorcet, Lecompte) Oxycodone (Percocet, Percodan, Oxycodone, Oxy IR) Some common benzodiazepines include: Diazepam (Valium) Lorazepam (Ativan) Alprazolam (Xanax) Clonazepam (Klonopin) Oxazepam (Serax) All of these controlled substances are highly addictive and frequently abused. Misuse can and frequently does lead to addiction as well as overdose and . Medication should be stored in a locked cabinet or other secure storage unit. Do not store the medication in a motor vehicle. Short term supplies, 3 days or less, are prescribed because of the highly addictive nature of the medication. Any of the controlled substance medication NOT taken should be disposed of properly and NOT SAVED. The recommended method of disposing of unused medications is: Place the medicines in a sealable plastic bag. If the medicine is a solid, crush it or add water to dissolve it. Add something undesirable (cat litter, coffee grounds, etc.) Dispose of sealed bag in household trash Do not flush or pour unused medicines down a sink or drain. Controlled substances should not be shared, given away or sold. Because of the addictive nature and frequent abuse, these medications are sometimes stolen. These medications should be kept in a safe place where they cannot be stolen. Do not keep them in your car or purse. Lost or stolen prescriptions for controlled substances WILL NOT BE REFILLED in this emergency department, regardless of whether a police report was filed. Prescriptions: Oxycodone HCl/Acetaminophen [Percocet 5/325mg tablet] 1 tab PO Q6HP PRN #8 tab PRN Reason: Moderate To Severe Pain Transmission Status: Sent to [facility] Referrals: Gertrude Lunsford APRN [Nurse Practitioner] - - Critical Care Critical Care Time: No Attestation: On 04/28/21, the high probability of a clinically significant, sudden or life threatening deterioration of the following system(s) required my full and direct attention, intervention and personal management. The time I documented below is in addition to time spent performing reported procedures but includes the following listed in this critical care notation. Medical Decision Making - Cheko Inquiry Pt receiving controlled substance: Yes Cheko was queried for this patient: Yes Risks and benefits of using a controlled substance: were discussed with pt by me Vital Signs: 04/28/21 18:39 04/28/21 19:00 04/28/21 19:30 Temperature 98.2 F Temperature Source Oral Pulse Rate 106 H 111 H Pulse Rate [Left Radial] 109 H Respiratory Rate 18 18 18 Blood Pressure 151/101 H 147/98 H Blood Pressure [Right Arm] 165/103 H Blood Pressure Mean 117 113 Blood Pressure Mean [Right Arm] 123 02 Sat by Pulse Oximetry 100 96 96 Oxygen Delivery Method Room Air Orders (Tests/Meds):
[2021-04-28 20:18] VITALS: BP 144/100; PULSE 99; RESP 20; TEMP 37; O2SAT 99
== END 2021-04-28 20:22 | disposition home or self-care (01) ==
PROVIDERS: Emergency Provider Emergency Medicine; PCP Emergency Medicine
DX: M54.50 Low back pain, unspecified (principal); X50.0XXA Overexertion from strenuous movement or load, initial encounter; I10 Essential (primary) hypertension; F17.210 Nicotine dependence, cigarettes, uncomplicated
CPT/HCPCS: 96372; 99281

== ENCOUNTER → 2021-05-04 13:20 | Outpatient (CLI) | payer OTHER, SELFPAY ==
--- NOTE | 2021-05-04 13:20 | MR_ITS ---
FINAL REPORT CLINICAL HISTORY: back pain FINDINGS: Multiplanar MR imaging of the lumbar spine was performed without contrast. On the sagittal T2-weighted images, decreased signal is seen at L3-4 through L5-S1. The vertebral alignment is normal. There is no evidence of fracture. No bony mass is identified. The conus is seen at approximately the L1 level and has an unremarkable appearance. L1-2: There is no significant canal stenosis or neural foraminal narrowing. L2-3: There is no significant canal stenosis or neural foraminal narrowing. L3-4: Mild disc bulge with left posterior lateral disc protrusion and moderate to high-grade left neuroforaminal narrowing. L4-5: Small midline disc protrusion with mild to moderate central canal stenosis seen on image 19 of series 8. L5-S1: Mild C6 disc bulge with mild central canal stenosis and bilateral neuroforaminal narrowing. IMPRESSION: Multilevel degenerative disc disease with left posterolateral disc protrusion at L3-4 and moderate to high-grade left neuroforaminal narrowing. Disc protrusions at L4-5 and L5-S1 with mild to moderate central canal stenosis and neuroforaminal narrowing. Reviewed, Interpreted and Dictated by Joshua Mancini MD Transcribed by Smitha Chaudhari Authenticated by Joshua Mancini MD on 05/04/2021 04:23:47 PM [facility]
--- NOTE | 2021-05-04 13:20 | MR_ITS ---
FINAL REPORT CLINICAL HISTORY: neck pain, BILATERAL ARM NUMBNESS FINDINGS: Multi planar MR imaging was obtained of the cervical spine. Axial images are degraded by patient motion. There is abnormal decreased signal throughout the cervical discs. The vertebrae are of normal height. There is no malalignment. The cervical cord demonstrates normal signal and configuration. There is mild cerebellar tonsillar ectopia without definite Chiari malformation. C2-C3: There is no evidence of significant disc bulge or protrusion. There is no significant facet hypertrophy. C3-C4: There is no evidence of significant disc bulge or protrusion. There is no significant facet hypertrophy. C4-C5: There is no evidence of significant disc bulge or protrusion. There is no significant facet hypertrophy. C5-C6: There is no evidence of significant disc bulge or protrusion. There is no significant facet hypertrophy. C6-C7: There is no evidence of significant disc bulge or protrusion. There is no significant facet hypertrophy. C7-T1: There is no evidence of significant disc bulge or protrusion. There is no significant facet hypertrophy. IMPRESSION: No significant disc bulge or protrusion. Mild cerebellar tonsillar ectopia without definite Chiari malformation. Reviewed, Interpreted and Dictated by Joshua Mancini MD Transcribed by Asif Hogue Authenticated by Joshua Mancini MD on 05/04/2021 03:38:39 PM [facility]
== END ==
PROVIDERS: PCP Emergency Medicine; Visit Provider Emergency Medicine
DX: M54.50 Low back pain, unspecified (principal); M54.2 Cervicalgia
CPT/HCPCS: 72141; 72148; 76376

== ENCOUNTER 2021-05-06 13:51 | Outpatient (RCR) | payer OTHER, SELFPAY ==
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
== END 2021-08-12 11:18 | disposition home or self-care (01) ==
LOC: PT 13:51
PROVIDERS: PCP Emergency Medicine; Visit Provider Emergency Medicine
DX: M54.2 Cervicalgia (principal); M54.9 Dorsalgia, unspecified; M54.50 Low back pain, unspecified
CPT/HCPCS: 97163

== ENCOUNTER 2021-05-06 15:55 | Emergency (ER) | payer OTHER, SELFPAY ==
[2021-05-06 15:55] VITALS: BP 144/102; PULSE 114; RESP 18; TEMP 36.6; O2SAT 97; BMI 25.8
--- NOTE | 2021-05-06 16:52 | PC.NURSE ---
PT SLEEPING BUT EASILY AWAKENS
[2021-05-06 17:00] VITALS: BP 121/82; PULSE 95; RESP 18; O2SAT 93
--- NOTE | 2021-05-06 17:26 | HMH.EDGENADL ---
ED Disposition Clinical Impression: Opiate overdose Qualifiers: Encounter type: initial encounter Injury intent: accidental or unintentional Qualified Code(s): T40.601A - Poisoning by unspecified narcotics, accidental (unintentional), initial encounter Disposition: Home, Self-Care Condition on Discharge: Good Instructions: DI for Drug Overdose in Adults Additional Instructions: Do not take any more hydrocodone or any other pain medication until tomorrow morning. Take hydrocodone and other pain medications only as prescribed. Referrals: Arik Mckeon MD [Primary Care Provider] - - Critical Care Critical Care Time: No Attestation: On 05/06/21, the high probability of a clinically significant, sudden or life threatening deterioration of the following system(s) required my full and direct attention, intervention and personal management. The time I documented below is in addition to time spent performing reported procedures but includes the following listed in this critical care notation. Medical Decision Making - Medical Records Medical records reviewed: Yes: I reviewed the patient's medical records. MR Comment: Seen by me in this emergency department on 04/28/2021 for acute back injury exacerbating chronic back pain after lifting a 100 pound propane tank. He was not getting relief from hydrocodone. He was given a prescription for 8 Percocet tablets. Reviewed recent MRI reports of lumbar and cervical spine obtained after that visit. See below. - Cheko Inquiry Pt receiving controlled substance: No Vital Signs: 05/06/21 15:55 Temperature 97.8 F Temperature Source Oral Pulse Rate [Right Radial] 114 H Respiratory Rate 18 Blood Pressure [Right Arm] 144/102 H Blood Pressure Mean [Right Arm] 116 Blood Pressure Source [Right Arm] Automatic Cuff Blood Pressure Position [Right Arm] Sitting 02 Sat by Pulse Oximetry 97 Oxygen Delivery Method Room Air Orders (Tests/Meds): ORDERS Category Date Time Status Drug Screen,Urine Stat Lab 05/06/21 17:23 Ordered FINAL REPORT CLINICAL HISTORY: back pain FINDINGS: Multiplanar MR imaging of the lumbar spine was performed without contrast. On the sagittal T2-weighted images, decreased signal is seen at L3-4 through L5-S1. The vertebral alignment is normal. There is no evidence of fracture. No bony mass is identified. The conus is seen at approximately the L1 level and has an unremarkable appearance. L1-2: There is no significant canal stenosis or neural foraminal narrowing. L2-3: There is no significant canal stenosis or neural foraminal narrowing. L3-4: Mild disc bulge with left posterior lateral disc protrusion and moderate to high-grade left neuroforaminal narrowing. L4-5: Small midline disc protrusion with mild to moderate central canal stenosis seen on image 19 of series 8. L5-S1: Mild C6 disc bulge with mild central canal stenosis and bilateral neuroforaminal narrowing. IMPRESSION: Multilevel degenerative disc disease with left posterolateral disc protrusion at L3-4 and moderate to high-grade left neuroforaminal narrowing. Disc protrusions at L4-5 and L5-S1 with mild to moderate central canal stenosis and neuroforaminal narrowing. Reviewed, Interpreted and Dictated by Joshua Mancini MD Transcribed by Smitha Chaudhari Authenticated by Joshua Mancini MD on 05/04/2021 04:23:47 PM [facility] FINAL REPORT CLINICAL HISTORY: neck pain, BILATERAL ARM NUMBNESS FINDINGS: Multi planar MR imaging was obtained of the cervical spine. Axial images are degraded by patient motion. There is abnormal decreased signal throughout the cervical discs. The vertebrae are of normal height. There is no malalignment. The cervical cord demonstrates normal signal and configuration. There is mild cerebellar tonsillar ectopia without definite Chiari malformation. C2-C3: There is no evidence of significant disc bulge or protrusion. There
--- NOTE | 2021-05-06 17:27 | PC.NURSE ---
PT REFUSES TO GIVE A URINE SAMPLE HE JUST WANTS TO GO HOME NOTIFIED
[2021-05-06 17:30] VITALS: BP 129/84; PULSE 103; RESP 18; O2SAT 97
--- NOTE | 2021-05-06 17:38 | PC.NURSE ---
pt states he is trying to find a ride
[2021-05-06 17:49] VITALS: BP 133/96; PULSE 111; RESP 18; O2SAT 97
[2021-05-06 17:56] VITALS: BP 133/96; PULSE 117; RESP 18; TEMP 36.6; O2SAT 98
== END 2021-05-06 17:56 | disposition home or self-care (01) ==
PROVIDERS: Emergency Provider Emergency Medicine; PCP Emergency Medicine
DX: T40.601A Poisoning by unspecified narcotics, accidental (unintentional), initial encounter (principal); F17.210 Nicotine dependence, cigarettes, uncomplicated
CPT/HCPCS: 99281

== ENCOUNTER → 2021-06-18 13:24 | Outpatient (POV) | payer OTHER, SELFPAY ==
[2021-06-18 13:35] VITALS: BP 165/99; PULSE 107; RESP 20; TEMP 37.1; O2SAT 99; BMI 28.5
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
== END ==
PROVIDERS: Visit Provider Student in an Organized Health Care Education/Training Program
DX: M54.16 Radiculopathy, lumbar region (principal); M48.061 Spinal stenosis, lumbar region without neurogenic claudication; M50.30 Other cervical disc degeneration, unspecified cervical region
CPT/HCPCS: 99202; G0463

== ENCOUNTER 2021-06-26 13:49 | Day surgery (SDC) | payer OTHER, SELFPAY ==
[2021-06-26 13:57] VITALS: BP 141/87; BP 142/84; BP 142/96; PULSE 81; PULSE 83; PULSE 90; RESP 18; RESP 20; TEMP 36.1; O2SAT 100; O2SAT 99; BMI 28.7
--- NOTE | 2021-06-26 14:12 | HMH.PMPROC ---
- Procedure Date: 06/26/21 Time: 14:12 Anesthesiologist:: Leo Sanchez MD Complications:: None Pre-procedure Diagnosis:: Degenerative disc disease of lumbar spine with lumbar radiculopathy symptoms Post-procedure Diagnosis:: Same Indications for Procedure:: This patient is a pleasant 40-year-old white male who we are treating for low back pain with lumbar radiculopathy symptoms. He has increasing pain in his back radiating down both legs. We will plan lumbar epidural steroid injection today to help him with his pain symptoms. Procedure Details:: Informed consent was obtained and the risk and benefits of the procedure was explained to the patient. The patient was taken to the procedure room. The patient was placed prone on the procedure table. The patient was prepped and draped in sterile fashion. C-arm fluoroscopy was used to view the lumbar spine. Skin and subcutaneous tissues were anesthetized using lidocaine. I placed an 18-gauge epidural needle and advanced into the L4-L5 interspace using fluoroscopic guidance and [id number] to air. After confirmation of needle placement in the epidural space with dye I injected 2 mL of lidocaine 1.5% with Depo-Medrol 80 mg. Patient tolerated the procedure well with no complications. Plan and Disposition:: We will follow-up with him in 2 weeks. Will reevaluate symptoms at that time.
[2021-06-26 14:17] VITALS: BP 133/93; PULSE 90; RESP 20; O2SAT 99
== END 2021-06-26 14:19 | disposition home or self-care (01) ==
LOC: SC.PAINP 13:49
PROVIDERS: PCP Emergency Medicine; Visit Provider Anesthesiology
DX: M51.16 Intervertebral disc disorders with radiculopathy, lumbar region (principal)
CPT/HCPCS: 62323; J1040; Q9966

== ENCOUNTER → 2021-12-29 06:32 | Outpatient (CLI) | payer OTHER, SELFPAY ==
[2021-12-29 21:41] LABS: Amphetamine/Metha Screen,Urine Negative ng/ml (<1000); Barbiturates Screen,Urine Negative ng/ml (<200)
[2021-12-29 21:42] LABS: Benzodiazepines Screen,Urine Negative ng/ml (<200)
[2021-12-29 21:43] LABS: Cannabinoid Screen,Urine Negative ng/ml (<50); Cocaine Screen,Urine Negative ng/ml (<300)
[2021-12-29 21:44] LABS: Methadone Screen,Urine Negative ng/ml (<300)
[2021-12-29 21:45] LABS: Opiate Screen,Urine Positive ng/ml (<300)
[2021-12-29 21:46] LABS: Phencyclidine Screen,Urine Negative ng/ml (<25)
== END ==
PROVIDERS: PCP Emergency Medicine; Visit Provider Emergency Medicine
DX: Z79.899 Other long term (current) drug therapy (principal)
CPT/HCPCS: 80305

== ENCOUNTER → 2022-02-24 14:39 | Outpatient (CLI) | payer OTHER, SELFPAY ==
[2022-02-24 14:52] LABS: Amphetamine/Metha Screen,Urine Negative ng/ml (<1000); Barbiturates Screen,Urine Negative ng/ml (<200)
[2022-02-24 14:54] LABS: Benzodiazepines Screen,Urine Negative ng/ml (<200)
[2022-02-24 14:55] LABS: Cannabinoid Screen,Urine Negative ng/ml (<50); Cocaine Screen,Urine Negative ng/ml (<300)
[2022-02-24 14:56] LABS: Methadone Screen,Urine Negative ng/ml (<300)
[2022-02-24 14:57] LABS: Opiate Screen,Urine Positive ng/ml (<300); Phencyclidine Screen,Urine Negative ng/ml (<25)
== END ==
PROVIDERS: PCP Emergency Medicine; Visit Provider Emergency Medicine
DX: Z79.899 Other long term (current) drug therapy (principal)
CPT/HCPCS: 80305

== ENCOUNTER → 2022-04-23 16:38 | Outpatient (CLI) | payer OTHER, SELFPAY ==
[2022-04-23 14:09] LABS: Basophils % 0.9 % (0.1-2.0); Eosinophils # 0.1 K/mm3 (0.0-0.4); Hematocrit 45.6 % (42.0-52.0); Hemoglobin 15.1 g/dL (14.1-18.0); Lymphocytes # 1.6 K/mm3 (0.7-4.5); Lymphocytes % 32.4 % (10-50); Mean Corpuscular HGB Conc 33.2 g/dL (31.8-35.4); Mean Corpuscular Hemoglobin 32.2 pg (27.0-31.2); Mean Corpuscular Volume 97.1 fl (80-94); Mean Platelet Volume 7.9 fl (7.4-10.4); Monocytes # 0.4 K/mm3 (0.1-1.0); Monocytes % 8.5 % (1.7-9.3); Neutrophils # 2.7 K/mm3 (1.8-7.8); Neutrophils % 55.3 % (37.0-80.0); Platelet Count 355 K/mm3 (142-424); Red Cell Distribution Width 12.4 % (11.5-17.5); White Blood Count 4.9 K/mm3 (4.8-10.8)
[2022-04-23 14:11] LABS: Alanine Aminotransferase 30 U/L (12-78); Albumin Level 5.3 g/dl (3.5-5.0); Albumin/Globulin Ratio 1.5 (1.1-1.8); Alkaline Phosphatase 78 U/L (38-126); Anion Gap 17.3 mEq/L (5-15); Aspartate Amino Transferase 35 U/L (17-59); Bilirubin,Total 0.7 mg/dl (0.2-1.3); Blood Urea Nitrogen 14 mg/dl (9-20); Calcium 9.6 mg/dl (8.4-10.2); Carbon Dioxide 26 mmol/L (22.0-30.0); Chloride 103 mmol/L (98-107); Estimated Glomerular Filt Rate 93 ml/min (>60); GFR (African American) 113 ML/MIN (>60); Globulin 3.6 g/dL (1.3-3.2); Glucose 99 mg/dl (74-100); Potassium 4.3 mmoL/L (3.5-5.1); Sodium 142 mmol/L (136-145); Total Protein,Serum 8.9 g/dl (6.3-8.2)
[2022-04-23 14:42] LABS: Thyroid Stimulating Hormone 2.65 uIU/mL (0.465-4.68)
[2022-04-25 07:17] LABS: Testosterone,Total 413 ng/dL (264-916)
== END ==
PROVIDERS: PCP Emergency Medicine; Visit Provider Emergency Medicine
DX: S30.1XXA Contusion of abdominal wall, initial encounter (principal); E66.3 Overweight; Z68.29 Body mass index [BMI] 29.0-29.9, adult
CPT/HCPCS: 80053; 84403; 84443; 85025

== ENCOUNTER → 2022-06-18 11:30 | Outpatient (CLI) | payer OTHER, SELFPAY ==
[2022-06-18 14:49] LABS: Opiate Screen,Urine Positive ng/ml (<300)
[2022-06-18 14:50] LABS: Phencyclidine Screen,Urine Negative ng/ml (<25)
[2022-06-18 14:57] LABS: Amphetamine/Metha Screen,Urine Negative ng/ml (<1000); Barbiturates Screen,Urine Negative ng/ml (<200)
[2022-06-18 14:58] LABS: Benzodiazepines Screen,Urine Negative ng/ml (<200); Cannabinoid Screen,Urine Negative ng/ml (<50)
[2022-06-18 14:59] LABS: Cocaine Screen,Urine Negative ng/ml (<300)
[2022-06-18 15:00] LABS: Methadone Screen,Urine Negative ng/ml (<300)
== END ==
PROVIDERS: PCP Emergency Medicine; Visit Provider Emergency Medicine
DX: Z79.899 Other long term (current) drug therapy (principal)
CPT/HCPCS: 80305

== ENCOUNTER 2022-08-09 08:48 | Emergency (ER) | payer OTHER, SELFPAY ==
[2022-08-09 08:50] VITALS: BP 132/92; PULSE 101; RESP 18; TEMP 36.8; O2SAT 99; BMI 27.9
--- NOTE | 2022-08-09 08:56 | PC.NURSE ---
on further assessment of pt. pt reports he mostly fell onto his left side with no reports of LOC or head/neck injury. pt denies any blood thinners. on palpation pt denies any spinal tenderness or abdominal tenderness. pt breath sounds are symmetrical and present bilaterally and pupils are equal, round and reactive to light at this time
--- NOTE | 2022-08-09 09:04 | EXP.UTC ---
Discharge Plan Disposition Patient Disposition: Home, Self-Care Condition: Good Prescriptions Prescriptions: New ibuprofen [IBU] 800 mg tablet 800 mg PO Q8HP PRN (Reason: Moderate Pain) Qty: 30 0RF No Action gabapentin 600 mg tablet 600 mg PO TID Qty: 90 1RF hydrocodone-acetaminophen 7.5-325 mg tablet 1 tab PO QID Qty: 120 0RF colchicine 0.6 mg tablet See Rx Instructions .ROUTE .COMPLEX Qty: 90 0RF Dose Instruction: TAKE 2 TABLETS BY MOUTH AT FIRST SIGN OF FLARE FOLLOWED BY 1 TABLET 1 HOUR LATER. TAKE TAKE 1 TABLET BY MOUTH DAILY THEREAFTER. Rx Instructions: TAKE 2 TABLETS BY MOUTH AT FIRST SIGN OF FLARE FOLLOWED BY 1 TABLET 1 HOUR LATER. TAKE TAKE 1 TABLET BY MOUTH DAILY THEREAFTER. lisinopril 10 mg tablet See Rx Instructions .ROUTE .COMPLEX Qty: 90 0RF Dose Instruction: TAKE 1 TABLET BY MOUTH ONCE DAILY FOR BLOOD PRESSURE Rx Instructions: TAKE 1 TABLET BY MOUTH ONCE DAILY FOR BLOOD PRESSURE Referrals Follow up/Referrals: Arik Mckeon MD [Primary Care Provider] - See instructions Activity Restrictions/Add. Instructions Additional Instructions/Restrictions: Rest the extremity, apply ice for 15 minutes as tolerated three or four times per day, Elevate the extremity as tolerated while you are resting. Take ibuprofen for pain. I sent in a prescription to your pharmacy. Follow up with Dr. Wallace (orthopedics). I put in a referral but you need to call his office and schedule an appointment. Follow up with your regular doctor. GO TO THE ER FOR ANY WORSENING SYMPTOMS Clinical Impressions Clinical Impression: Left knee sprain, Low back pain, Sprain of left elbow, Fall Stand Alone Forms Stand Alone Forms: Work/School Release Instructions Patient Instructions: How to Use Crutches, Knee Sprain, Elbow Sprain, DI for Knee Sprain, DI for Elbow Sprain, How to Use a Knee Immobilizer Discharge ED Provider: Alton Smith [facility] General Stated complaint: [id number] left knee pain, home accident Time Seen by Provider: 08/09/22 09:15 History of Present Illness Provider Complaint: He states that he fell about 10 feet off of a ladder yesterday. He states that he is having left knee pain, left hip pain, low back pain and left elbow pain. He denies other injury. He denies loss of consciousness and neck pain. Related Data Previous Rx's Medication Instructions Recorded colchicine 0.6 mg tablet See Rx Instructions .Route 06/01/22 .COMPLEX #90 tabs lisinopril 10 mg tablet See Rx Instructions .Route 06/01/22 .COMPLEX #90 tabs gabapentin 600 mg tablet 600 mg PO TID nerve pain #90 tabs 06/18/22 hydrocodone 7.5 mg-acetaminophen 1 tab PO QID #120 tabs 06/18/22 325 mg tablet ibuprofen 800 mg tablet (IBU) 800 mg PO Q8HP PRN Moderate Pain 08/09/22 #30 tabs Allergies Allergy/AdvReac Type Severity Reaction Status Date / Time No Known Allergies Allergy Verified 06/18/22 11:41 [facility] Disclaimer: The information contained in this section may have been updated after the patient was seen, as this information can be updated by other users. Social History Smoking Status: Current every day smoker tobacco type: cigarettes packs per day: 1 alcohol intake: never substance use type: other current occupational status: employed and other Travel in the last 8 weeks: None household members: other housing: house caffeine: Yes ROS Obtained: Yes All systems reviewed & no additional complaints except as documented Constitutional Constitutional: Denies chills and Denies fever(s) Eyes Eyes: Denies eye discharge ENT Ears, Nose, Mouth, and Throat: Denies dizziness, Denies otalgia and Denies sore throat Cardiovascular Cardiovascular: Denies chest pain Respiratory Respiratory: Denies shortness of breath, Denies chest congestion, Denies cough, Denies stridor and Denies wheezing Gastrointestina
--- NOTE | 2022-08-09 09:05 | PC.NURSE ---
pt to xray. pt refused wheelchair assistance for transport. pt reports he would just assume walk then get up and down
--- NOTE | 2022-08-09 09:09 | XR_ITS ---
FINAL REPORT CLINICAL HISTORY: fall, lt leg pain FINDINGS: Multiple views of the left femur were obtained. There is no acute fracture or dislocation. Visualized joint spaces are intact. There is no acute soft tissue abnormality. IMPRESSION: No acute process. Reviewed, Interpreted and Dictated by Joshua Mancini MD Transcribed by Asif Hogue Authenticated and [facility]
--- NOTE | 2022-08-09 09:09 | XR_ITS ---
FINAL REPORT CLINICAL HISTORY: fall, lt hip pain FINDINGS: 2 views of the left hip were obtained. There is no acute fracture or dislocation. The joint spaces are intact. There are no soft tissue abnormalities. IMPRESSION: No acute process. Reviewed, Interpreted and Dictated by Joshua Mancini MD Transcribed by Asif Hogue Authenticated and [facility]
--- NOTE | 2022-08-09 09:09 | XR_ITS ---
FINAL REPORT CLINICAL HISTORY: fall, lt leg pain FINDINGS: 3 views of the left knee were obtained. There is no acute fracture or dislocation. There is an osteophyte along the superior patella. The joint spaces are intact. There is no soft tissue abnormality. IMPRESSION: No acute process. Reviewed, Interpreted and Dictated by Joshau Mancini MD Transcribed by Asif Hogue Authenticated and [facility]
--- NOTE | 2022-08-09 09:09 | XR_ITS ---
FINAL REPORT CLINICAL HISTORY: fall, low back pain FINDINGS: Three views were obtained. There is no acute fracture. There is no malalignment. The disc spaces are maintained. IMPRESSION: No acute process. Reviewed, Interpreted and Dictated by Joshua Mancini MD Transcribed by Asif Hogue Authenticated and . [facility]
--- NOTE | 2022-08-09 09:09 | XR_ITS ---
FINAL REPORT CLINICAL HISTORY: fall, lt elbow pain FINDINGS: LEFT ELBOW 3 views were obtained. There is no acute fracture or dislocation. There is no joint effusion. The joint spaces are intact. There is no soft tissue abnormality. IMPRESSION: No acute process. Reviewed, Interpreted and Dictated by Joshua Mancini MD Transcribed by Asif Hogue Authenticated and [facility]
--- NOTE | 2022-08-09 09:38 | PC.NURSE ---
pt returned from xray
[2022-08-09 10:32] VITALS: BP 132/92; PULSE 110; RESP 18; TEMP 36.6; O2SAT 99
== END 2022-08-09 10:50 | disposition home or self-care (01) ==
PROVIDERS: Emergency Provider Nurse Practitioner Family; PCP Emergency Medicine
DX: S83.92XA Sprain of unspecified site of left knee, initial encounter (principal); S53.402A Unspecified sprain of left elbow, initial encounter; F17.210 Nicotine dependence, cigarettes, uncomplicated; W11.XXXA Fall on and from ladder, initial encounter
CPT/HCPCS: 72100; 73080; 73502; 73552; 73562; 99212; 99214; G0463

== ENCOUNTER → 2022-12-14 13:40 | Outpatient (CLI) | payer OTHER, SELFPAY ==
[2022-12-14 19:54] LABS: Amphetamine/Metha Screen,Urine Negative ng/ml (<1000)
[2022-12-14 19:55] LABS: Cannabinoid Screen,Urine Negative ng/ml (<50)
[2022-12-14 19:56] LABS: Barbiturates Screen,Urine Negative ng/ml (<200)
[2022-12-14 19:57] LABS: Benzodiazepines Screen,Urine Negative ng/ml (<200); Opiate Screen,Urine Positive ng/ml (<300)
[2022-12-14 19:58] LABS: Cocaine Screen,Urine Negative ng/ml (<300)
[2022-12-14 19:59] LABS: Methadone Screen,Urine Negative ng/ml (<300)
[2022-12-14 20:00] LABS: Phencyclidine Screen,Urine Negative ng/ml (<25)
== END ==
PROVIDERS: PCP Emergency Medicine; Visit Provider Emergency Medicine
DX: M48.061 Spinal stenosis, lumbar region without neurogenic claudication (principal)
CPT/HCPCS: 80305

== ENCOUNTER 2023-01-09 20:30 | Emergency (ER) | payer OTHER, SELFPAY ==
[2023-01-09 20:31] VITALS: BP 165/97; PULSE 102; RESP 16; TEMP 36.8; O2SAT 100; BMI 27.9
--- NOTE | 2023-01-09 20:41 | XR_ITS ---
PROCEDURE INFORMATION: Exam: XR Right Elbow Exam date and time: 01/09/2023 8:48 PM Age: 42 years old Clinical indication: Pain; Elbow; Right; Additional info: Pain, swelling TECHNIQUE: Imaging protocol: Radiologic exam of the right elbow. Views: 3 or more views. Total images: 3 COMPARISON: No relevant prior studies available. FINDINGS: Bones/joints: No acute fracture, joint dislocation, or joint effusion. No significant degenerative arthropathy. Tiny enthesophytes at the humeral epicondyles, olecranon process and coronoid process. Soft tissues: Soft tissue swelling posterior to the elbow. IMPRESSION: 1. Soft tissue swelling posterior to the elbow may reflect olecranon bursitis. 2. No acute osseous abnormality or joint effusion.
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
[2023-01-09 22:32] VITALS: BP 165/97; PULSE 88; RESP 16; TEMP 36.7; O2SAT 98
== END 2023-01-09 22:33 | disposition home or self-care (01) ==
PROVIDERS: Emergency Provider Emergency Medicine; PCP Emergency Medicine
DX: M70.21 Olecranon bursitis, right elbow (principal); W22.09XA Striking against other stationary object, initial encounter; F17.210 Nicotine dependence, cigarettes, uncomplicated
CPT/HCPCS: 73080; 96372; 99283

== ENCOUNTER → 2023-02-08 08:13 | Outpatient (CLI) | payer OTHER, SELFPAY ==
[2023-02-08 19:58] LABS: Benzodiazepines Screen,Urine Negative ng/ml (<200)
[2023-02-08 19:59] LABS: Amphetamine/Metha Screen,Urine Negative ng/ml (<1000); Barbiturates Screen,Urine Negative ng/ml (<200)
[2023-02-08 20:00] LABS: Cannabinoid Screen,Urine Negative ng/ml (<50)
[2023-02-08 20:01] LABS: Cocaine Screen,Urine Negative ng/ml (<300); Methadone Screen,Urine Negative ng/ml (<300)
[2023-02-08 20:02] LABS: Opiate Screen,Urine Positive ng/ml (<300); Phencyclidine Screen,Urine Negative ng/ml (<25)
== END ==
PROVIDERS: PCP Emergency Medicine; Visit Provider Emergency Medicine
DX: Z79.899 Other long term (current) drug therapy (principal)
CPT/HCPCS: 80305

== ENCOUNTER → 2023-04-05 23:42 | Outpatient (CLI) | payer OTHER, SELFPAY ==
[2023-04-05 18:59] LABS: Cholesterol 244 mg/dl (140-200); HDL Cholesterol 49 mg/dl (40-60)
[2023-04-05 19:11] LABS: Direct LDL Cholesterol 116.69 mg/dL (100-129)
[2023-04-05 19:15] LABS: Triglycerides 449 mg/dl (30-150)
[2023-04-05 21:13] LABS: Amphetamine/Metha Screen,Urine Negative ng/ml (<1000); Barbiturates Screen,Urine Negative ng/ml (<200); Benzodiazepines Screen,Urine Negative ng/ml (<200); Cannabinoid Screen,Urine Negative ng/ml (<50); Cocaine Screen,Urine Negative ng/ml (<300); Methadone Screen,Urine Negative ng/ml (<300); Opiate Screen,Urine Positive ng/ml (<300); Phencyclidine Screen,Urine Negative ng/ml (<25)
== END ==
PROVIDERS: PCP Internal Medicine; Visit Provider Internal Medicine
DX: Z00.00 Encounter for general adult medical examination without abnormal findings (principal); Z79.899 Other long term (current) drug therapy
CPT/HCPCS: 80061; 80305

== ENCOUNTER 2023-05-03 20:54 | Outpatient (CLI) | payer OTHER, SELFPAY ==
[2023-05-03 19:41] LABS: Amphetamine/Metha Screen,Urine Negative ng/ml (<1000)
[2023-05-03 19:42] LABS: Barbiturates Screen,Urine Negative ng/ml (<200); Benzodiazepines Screen,Urine Negative ng/ml (<200)
[2023-05-03 19:43] LABS: Cannabinoid Screen,Urine Negative ng/ml (<50)
[2023-05-03 19:44] LABS: Cocaine Screen,Urine Negative ng/ml (<300)
[2023-05-03 19:45] LABS: Opiate Screen,Urine Positive ng/ml (<300)
[2023-05-03 19:46] LABS: Phencyclidine Screen,Urine Negative ng/ml (<25)
[2023-05-03 20:08] LABS: Methadone Screen,Urine Negative ng/ml (<300)
[2023-05-08 17:23] LABS: Gabapentin,Urine Negative (.)
== END 2023-05-03 23:59 ==
LOC: LAB.DROPOF 20:54
PROVIDERS: PCP Internal Medicine; Visit Provider Internal Medicine
DX: M54.50 Low back pain, unspecified (principal); Z79.899 Other long term (current) drug therapy
CPT/HCPCS: 80307

== ENCOUNTER 2023-06-01 11:04 | Day surgery (SDC) | payer OTHER, SELFPAY ==
[2023-06-01] VITALS (8 sets, daily range): BP systolic 102–154; BP diastolic 68–109; PULSE 61–110; RESP 15–18; TEMP 36.1–36.4; O2SAT 94–99; BMI 28.4
[2023-06-01] MEDS: LACTATED RINGERS 1000ML 1,000 ML 25 ML IV (11:29)
[2023-06-01] MEDS: CEFAZOLIN SODIUM 2 GM in 0.9 % SODIUM CHLORIDE 100 ML IV (13:00)
[2023-06-01] MEDS: LIDOCAINE 1% 10ML MDV 10 ML (13:22)
[2023-06-01] MEDS: BUPIVACAINE 0.5% 10ML VIAL 50 MG (13:22)
--- NOTE | 2023-06-01 13:44 | EXP.OP.NOTE ---
Date of procedure: 06/01/23 Pre-op Diagnosis:: Right carpal tunnel syndrome Post-op Diagnosis:: Same Procedure performed:: Right endoscopic carpal tunnel release Surgeon:: Geronimo Orr DO Anesthesia: GETKristofer Estimated blood loss (mL): 0 Operative findings:: See dictation Operative note:: Patient is identified preoperatively. Right wrist marked with yes my initials. Transferred operative suite placed upon the operating bed. General esthesia ministered airway secured. Right upper extremity was then prepped and draped normal sterile fashion. Once prepped and draped final operative timeout performed to identify proper patient procedure and extremity. Everyone involved the case agreed. There is no counter indications beginning. Did receive preoperative antibiotics. Marking pen was used to make plan incision over the volar wrist. Esmarch was used to exsanguinate the extremity pneumatic tourniquet inflated to 250 mmHg. Skin knife is used to incise the skin careful dissection was taken down to identify the most proximal aspect of the transverse carpal ligament. The dilators from the segue endoscopic carpal tunnel were utilized followed by the 4.0 mm sled that was placed into the carpal tunnel camera was then placed. The transverse carpal ligament was clearly seen superiorly within the camera. A hook was placed to determine the most proximal aspect of the transverse carpal ligament rasp was used to remove the soft tissue from the undersurface and a curved hook blade was then utilized to open the carpal tunnel. This was directly visualized. Irrigation was performed skin was closed with nylon stitch sterile hand dressing placed patient waken anesthesia taken recovery stable condition. Condition: stable Disposition: PACU Complications:: None apparent
--- NOTE | 2023-06-01 13:44 | EXP.ANES.I ---
[facility] Anesthesia Record Part I Anesthesia Record I Intake, IV Amount: 300 Hydration: Adequate Estimated blood loss (mL): 1 Urine output (mL): 0 Blood Products used (#): none Blood Pressure: 148/86 SaO2: 94 Pulse Rate: 93 Airway Patency: Patent Respiratory Rate: 16 Temperature: 97.1 F Patient is:: Awake (Talking) and Stable Stable to PACU at:: 13:47
--- NOTE | 2023-06-01 14:39 | EXP.ANES.I ---
[facility] Anesthesia Record Part I Anesthesia Record I Intake, IV Amount: 900 Hydration: Adequate Estimated blood loss (mL): 1 Urine output (mL): 0 Blood Products used (#): none Blood Pressure: 102/68 SaO2: 99 Pulse Rate: 61 Airway Patency: Patent Respiratory Rate: 16 Temperature: 97.0 F Patient is:: Awake (Talking) and Stable Stable to PACU at:: 14:34
--- NOTE | 2023-06-02 07:56 | P.PNANES_ITS ---
[facility] Anesthesia Record Part II Anesthesia Record Part II Discharge Time: 14:12 Destination: Surgical Day Care (OP Surgery) PACU nurse assessment reviewed?: Yes Patient Condition:: Good Anesthesia Complications:: None Swallowing reflex intact?: Yes Airway Patency: Patent Cyanosis?: No Blood Pressure: 137/97 SaO2: 95 Respiratory Rate: 17 Pulse Rate: 68 Temperature: 97.4 F Mental Status: Alert & Oriented Pain level:: 0 Nausea and/or vomitting:: None Intake, IV Amount: 0 Hydration: Adequate
[2023-06-02 07:57] VITALS: BP 137/97; PULSE 68; RESP 17; TEMP 36.3; O2SAT 95
== END 2023-06-01 14:29 | disposition home or self-care (01) ==
PROVIDERS: PCP Internal Medicine; Visit Provider Orthopaedic Surgery
PROC: (CPT 64721; principal; 2023-06-01 11:45)
DX: G56.01 Carpal tunnel syndrome, right upper limb (principal)
CPT/HCPCS: 29848; 96374; J0690; J2405

== ENCOUNTER 2023-06-05 15:48 | Emergency (ER) | payer OTHER, SELFPAY ==
[2023-06-05 15:50] VITALS: BP 160/102; PULSE 105; RESP 19; TEMP 36.9; O2SAT 99; BMI 27.8
--- NOTE | 2023-06-05 16:05 | PC.NURSE ---
Dr. Mejia s/w Dr. Orr
[2023-06-05 16:10] VITALS: BP 132/90; PULSE 102; RESP 16; O2SAT 100
--- NOTE | 2023-06-05 16:10 | ED_ITS ---
Discharge Plan Disposition Patient Disposition: Home, Self-Care Prescriptions Prescriptions: New indomethacin 50 mg capsule 50 mg PO TID Qty: 21 0RF Rx Instructions: administer with food or milk prednisone 50 mg tablet 50 mg PO DAILY 4 Days Qty: 4 0RF Rx Instructions: Start on 06-06-2023 No Action colchicine 0.6 mg tablet See Rx Instructions .ROUTE .COMPLEX Qty: 90 0RF Dose Instruction: TAKE 2 TABLETS BY MOUTH AT FIRST SIGN OF FLARE FOLLOWED BY 1 TABLET 1 HOUR LATER. TAKE TAKE 1 TABLET BY MOUTH DAILY THEREAFTER. Rx Instructions: TAKE 2 TABLETS BY MOUTH AT FIRST SIGN OF FLARE FOLLOWED BY 1 TABLET 1 HOUR LATER. TAKE TAKE 1 TABLET BY MOUTH DAILY THEREAFTER. hydrocodone-acetaminophen 7.5-325 mg tablet 1 tab PO QID Qty: 120 0RF lisinopril 10 mg tablet See Rx Instructions .ROUTE .COMPLEX Qty: 90 0RF Dose Instruction: TAKE 1 TABLET BY MOUTH ONCE DAILY Rx Instructions: TAKE 1 TABLET BY MOUTH ONCE DAILY amitriptyline 25 mg tablet 25 mg PO HS 30 Days Qty: 30 2RF omega-3 fatty acids 1,000 mg capsule 1,000 mg PO DAILY 30 Days Qty: 30 2RF tramadol 50 mg tablet 50 mg PO Q6H PRN (Reason: post op pain) Qty: 20 0RF Referrals Follow up/Referrals: Jeet Rodriguez DO [Primary Care Provider] - See instructions Activity Restrictions/Add. Instructions Additional Instructions/Restrictions: At this time it was felt you are safe to be discharged home. If new or worsening symptoms please do not hesitate to return the emergency department. Please call and schedule an appointment with Dr. Orr over the next week for continued evaluation. Please take your medications as prescribed. Clinical Impressions Clinical Impression: Gout attack Discharge ED Provider: Matthew Mejia General Adult HPI General Stated complaint: post op 06/01 RT hand swelling Time Seen by Provider: 06/05/23 16:00 History of Present Illness HPI narrative: Patient is a 42-year-old male with past medical history of gout, carpal tunnel syndrome on the right with recent carpal tunnel release surgery who presents emergency department for evaluation of hand pain. Onset was acute, over the last couple of days patient has had pain in his wrist, CMC, MCP, PIP joints of the right upper extremity. Due to this he presents here for continued evaluation. Patient is supposed to be on controlled medication however he admits he is noncompliant and therefore just takes his colchicine when he feels joint pain coming on. Related Data Previous Rx's Medication Instructions Recorded omega-3 fatty acids 1,000 mg 1,000 mg PO DAILY 30 days #30 caps 04/06/23 capsule amitriptyline 25 mg tablet 25 mg PO HS 30 days #30 tabs 05/03/23 colchicine 0.6 mg tablet See Rx Instructions .Route 05/03/23 .COMPLEX #90 tabs hydrocodone 7.5 mg-acetaminophen 1 tab PO QID #120 tabs 05/03/23 325 mg tablet lisinopril 10 mg tablet See Rx Instructions .Route 05/03/23 .COMPLEX #90 tabs tramadol 50 mg tablet 50 mg PO Q6H PRN post op pain #20 06/01/23 tabs indomethacin 50 mg capsule 50 mg PO TID #21 caps 06/05/23 prednisone 50 mg tablet 50 mg PO DAILY 4 days #4 tabs 06/05/23 Allergies Allergy/AdvReac Type Severity Reaction Status Date / Time No Known Allergies Allergy Verified 06/01/23 11:19 [facility] Disclaimer: The information contained in this section may have been updated after the patient was seen, as this information can be updated by other users. Medical History (Updated 06/05/23 @ 16:10 by Matthew Mejia MD) Carpal tunnel syndrome Gout History of gastroesophageal reflux (GERD) Sleep apnea Surgical History (Updated 06/01/23 @ 11:18 by Cee Carrera RN) No significant past surgical history Family History (Updated 06/01/23 @ 11:18 by Cee Carrera RN) Other Family history of acute congestive heart failure Family history of diabetes mellitus type II Social History (Updated 06/01/23 @ 11:19 by Cee Carrera RN) Smoking Status: Current every day smoker tobacco type: cigarettes packs per day: 1 alcohol intake: never substance use type: other current occupational status: employed and other Travel in the last 8 weeks: None household members: other housing: house caffeine: Yes ROS Obtained: Yes Systems reviewed as appropriate & no additional complaints except as documented Physical Exam General General appearance: alert and in no apparent distress Head Head exam: atraumatic and normocephalic Eye Eye exam: Present PERRL and EOMI ENT ENT exam: Present mucous membranes moist Neck Neck exam: Present normal inspection Chest Chest inspection: Present normal inspection and symmetric chest wall rise Respiratory Respiratory exam: Absent respiratory distress Cardiovascular Cardiovascular exam: Present regular rate and normal rhythm Extremities Exam Extremities exam: Present other (Limited range of motion and pain with range of motion of the right wrist, CMC, MCP, PIP joints of the right hand, distal capillary refill preserved, 2+ right radial pulse. Incisional site on the volar wrist clean, dry, intact, no purulence) Neurological Exam Neurological exam: Present alert Psychiatric Psychiatric exam: Present normal affect Skin Skin exam: Present warm and dry Medical Decision Making Cheko Inquiry Pt receiving controlled substance: No Orders (Tests/Meds): ED MEDICATIONS Discontinued Medications Generic Name Dose Route Start Last Admin Trade Name Freq PRN Reason Stop Dose Admin Acetaminophen 1,000 mg 06/05/23 16:05 Acetaminophen 500mg Tab PO 06/05/23 16:06 ONCE ONE Ketorolac Tromethamine 30 mg 06/05/23 16:05 Ketorolac 30mg/Ml Vial IM 06/05/23 16:06 ONCE ONE Prednisone 40 mg 06/05/23 16:05 Prednisone 20mg Tab PO 06/05/23 16:06 ONCE ONE Medical Decision Narrative: In summary patient is a 42-year-old male with past medical history described above who presents emergency department for evaluation of right hand pain in his joints in the setting of gout and recent right-sided carpal tunnel release. Patient is hemodynamically stable nontoxic-appearing upon arrival, afebrile. Incision is clean, dry, intact, well-approximated. I do not have concern for infection at this time as it is much more likely that patient is having a gout attack precipitated by surgery. I discussed case with orthopedics regarding management and its effect on healing who agrees with this. Given this patient will be empirically treated with prednisone and intramuscular ketorolac here in the ER. Patient be discharged with a prescription for indomethacin and steroids and will follow-up with Dr. Orr on an outpatient basis. Critical Care Critical Care Time Critical Care Time: No
[2023-06-05] MEDS: KETOROLAC 30MG/ML VIAL 30 MG IM (16:16)
[2023-06-05] MEDS: predniSONE 20MG TAB 40 MG PO (16:16)
[2023-06-05] MEDS: ACETAMINOPHEN 500MG TAB 1000 MG PO (16:16)
[2023-06-05 16:21] VITALS: BP 134/98; PULSE 97; RESP 20; TEMP 36.9; O2SAT 96
== END 2023-06-05 16:28 | disposition home or self-care (01) ==
PROVIDERS: Emergency Provider Emergency Medicine; PCP Internal Medicine
DX: M10.041 Idiopathic gout, right hand (principal); K21.9 Gastro-esophageal reflux disease without esophagitis; G47.30 Sleep apnea, unspecified; F17.210 Nicotine dependence, cigarettes, uncomplicated
CPT/HCPCS: 96372; 99283

== ENCOUNTER 2023-06-17 19:02 | Emergency (ER) | payer OTHER, SELFPAY ==
[2023-06-17] VITALS (9 sets, daily range): BP systolic 124–161; BP diastolic 72–110; PULSE 80–95; RESP 17–18; TEMP 36.9; O2SAT 95–98; BMI 27.8
--- NOTE | 2023-06-17 19:58 | XR_ITS ---
PROCEDURE INFORMATION: Exam: XR Left Knee Exam date and time: 06/17/2023 8:57 PM Age: 42 years old Clinical indication: Pain; Knee; Left; Additional info: Fall with injury TECHNIQUE: Imaging protocol: Radiologic exam of the left knee. Views: 3 views. COMPARISON: CR XR KNEE LT 3V 08/09/2022 9:14 AM FINDINGS: Bones/joints: No fracture or dislocation. No significant degenerative changes. Small suprapatellar joint effusion. Small anterior superior patellar enthesophyte. Soft tissues: Normal. IMPRESSION: Small suprapatellar joint effusion.
--- NOTE | 2023-06-17 20:05 | ED_ITS ---
Discharge Plan Disposition Patient Disposition: Still a Patient Prescriptions Prescriptions: No Action hydrocodone-acetaminophen 7.5-325 mg tablet 1 tab PO QID Qty: 120 0RF colchicine 0.6 mg tablet See Rx Instructions .ROUTE .COMPLEX Qty: 90 0RF Dose Instruction: TAKE 2 TABLETS BY MOUTH AT FIRST SIGN OF FLARE FOLLOWED BY 1 TABLET 1 HOUR LATER. TAKE TAKE 1 TABLET BY MOUTH DAILY THEREAFTER. Rx Instructions: TAKE 2 TABLETS BY MOUTH AT FIRST SIGN OF FLARE FOLLOWED BY 1 TABLET 1 HOUR LATER. TAKE TAKE 1 TABLET BY MOUTH DAILY THEREAFTER. lisinopril 10 mg tablet See Rx Instructions .ROUTE .COMPLEX Qty: 90 0RF Dose Instruction: TAKE 1 TABLET BY MOUTH ONCE DAILY Rx Instructions: TAKE 1 TABLET BY MOUTH ONCE DAILY amitriptyline 25 mg tablet 25 mg PO HS 30 Days Qty: 30 2RF omega-3 fatty acids 1,000 mg capsule 1,000 mg PO DAILY 30 Days Qty: 30 2RF indomethacin 50 mg capsule 50 mg PO TID Qty: 21 0RF Rx Instructions: administer with food or milk prednisone 50 mg tablet 50 mg PO DAILY 4 Days Qty: 4 0RF Rx Instructions: Start on 06-06-2023 Referrals Follow up/Referrals: Jeet Rodriguez DO [Primary Care Provider] - See instructions Clinical Impressions Clinical Impression: Acute pain of left knee, Effusion of knee joint, left Discharge ED Provider: Lauro Hawkins General Adult HPI General Chief complaint: Extremity Injury, Lower Stated complaint: AO 06/15/23 Injury left knee Time Seen by Provider: 06/17/23 19:07 Mode of Arrival: Family Vehicle Source of Information: Patient Limitations: No Limitations Description of Symptoms (Recalled from ER Triage Doc. by RN): 42 yo male presents with cc of left knee injury 48 hours ago. Patient states he was carrying a bag of animal feed when he slipped and fell and his knee bent backwards . Complaining of pain to medial left knee. States not even the hydrocodone 7.5 mg that he takes for chronic back pain is helping ease the knee pain. Afebrile. Moderate swelling noted. History of Present Illness HPI narrative: 42-year-old male history of gout, hypertension, hyperlipidemia, bursitis presenting with knee pain. Patient states that the knee pain started a couple days prior to this visit. He was carrying a large bag of feed and slipped. His foot went laterally and posteriorly and he had immediate pain. Denies hearing a pop. He has been able to ambulate since that time, but has had significant pain has been worsening. Has taken hydrocodone that he has at home as well as Tylenol, this has not helped with the pain. It is currently severe, and does not radiate at rest. No fevers or chills, nausea or vomiting Related Data Previous Rx's Medication Instructions Recorded omega-3 fatty acids 1,000 mg 1,000 mg PO DAILY 30 days #30 caps 04/06/23 capsule amitriptyline 25 mg tablet 25 mg PO HS 30 days #30 tabs 05/03/23 colchicine 0.6 mg tablet See Rx Instructions .Route 05/03/23 .COMPLEX #90 tabs lisinopril 10 mg tablet See Rx Instructions .Route 05/03/23 .COMPLEX #90 tabs indomethacin 50 mg capsule 50 mg PO TID #21 caps 06/05/23 prednisone 50 mg tablet 50 mg PO DAILY 4 days #4 tabs 06/05/23 hydrocodone 7.5 mg-acetaminophen 1 tab PO QID #120 tabs 06/09/23 325 mg tablet Allergies Allergy/AdvReac Type Severity Reaction Status Date / Time No Known Allergies Allergy Verified 06/16/23 09:37 [facility] Disclaimer: The information contained in this section may have been updated after the patient was seen, as this information can be updated by other users. Medical History Sleep apnea Gout Carpal tunnel syndrome History of gastroesophageal reflux (GERD) Surgical History No significant past surgical history Family History Other Family history of acute congestive heart failure Family history of diabetes mellitus type II Social History Smoking Status: Unknown if ever smoked alcohol intake: never substance use type: other current occupational status: employed and other Travel in the last 8 weeks: None household members: other housing: house caffeine: Yes ROS Obtained: Yes All systems reviewed & no additional complaints except as documented Physical Exam General General appearance: alert and in no apparent distress Head Head exam: atraumatic and normocephalic Eye Eye exam: Present normal appearance, PERRL and EOMI ENT ENT exam: Present mucous membranes moist Neck Neck exam: Present normal inspection, full ROM and trachea midline Respiratory Respiratory exam: Absent respiratory distress, wheezes, stridor, accessory muscle use or prolonged expiratory phase Cardiovascular Cardiovascular exam: Present normal rhythm Abdominal Exam Abdominal exam: Present soft; Absent distention, tenderness, guarding, rebound or rigidity Extremities Exam Extremities exam: Present edema and other (Edema, erythema, tenderness about left knee. Structurally intact with range of motion limited secondary to pain. Neurovascular intact distally. Large joint effusion) Neurological Exam Neurological exam: Present alert, oriented X3, CN II-XII intact and normal gait; Absent motor sensory deficit Skin Skin exam: Present warm and dry; Absent diaphoresis or erythema Medical Decision Making Medical Records Medical records reviewed: Yes I reviewed the patient's medical records. [place] Inquiry Pt receiving controlled substance: No [place] was queried for this patient: No Vital Signs: 06/17/23 19:43 06/17/23 20:00 06/17/23 20:30 Temperature 98.5 F Temperature Source Oral Pulse Rate 93 H 84 Pulse Rate [Right Brachial] 95 H Respiratory Rate 17 Blood Pressure 148/98 H 144/86 H Blood Pressure [Right Arm] 151/110 H Blood Pressure Mean Blood Pressure Mean [Right Arm] 123 Blood Pressure Source [Right Arm] Automatic Cuff Blood Pressure Position [Right Arm] Sitting 02 Sat by Pulse Oximetry 98 98 96 Oxygen Delivery Method Room Air 06/17/23 21:03 06/17/23 21:30 06/17/23 22:00 Temperature Temperature Source Pulse Rate 90 81 88 Pulse Rate [Right Brachial] Respiratory Rate 18 18 Blood Pressure 130/75 149/86 H 124/72 Blood Pressure [Right Arm] Blood Pressure Mean 107 89 Blood Pressure Mean [Right Arm] Blood Pressure Source [Right Arm] Blood Pressure Position [Right Arm] 02 Sat by Pulse Oximetry 96 95 95 Oxygen Delivery Method Room Air Room Air Lab Data Lab Results 06/17/23 20:14: WBC 10.5, RBC 3.72 L, Hgb 12.6 L, Hct 37.7 L, MCV 101.2 H, MCH 33.9 H, MCHC 33.5, RDW 13.2, Plt Count 299, MPV 7.4, Neut % (Auto) 78.2, Lymph % (Auto) 13.5, [place] % (Auto) 7.3, Eos % (Auto) 0.7, Baso % (Auto) 0.3, Neut # (Auto) 8.2 H, Lymph # (Auto) 1.4, [place] # (Auto) 0.8, Eos # (Auto) 0.1, Baso # (Auto) 0.0, ESR 96 H, Sodium 137, Potassium 3.7, Chloride 105, Carbon Dioxide 24, Anion Gap 11.7, BUN 9, Creatinine 1.10, Estimated Creat Clear 112, Estimated GFR 73, Est GFR ( Amer) 89, Glucose 130 H, Lactate 1.2, Uric Acid 9.9 H, Calcium 9.1, Total Bilirubin 0.9, AST 36, ALT 42, Alkaline Phosphatase 142 H, C- Reactive Protein 91.6 H, Total Protein 7.8, Albumin 4.5, Globulin 3.3 H, Albumin/Globulin Ratio 1.4 06/17/23 20:14 06/17/23 20:14 Orders (Tests/Meds): ED MEDICATIONS Discontinued Medications Generic Name Dose Route Start Last Admin Trade Name Freq PRN Reason Stop Dose Admin Ketorolac Tromethamine 15 mg 06/17/23 20:00 06/17/23 20:10 Ketorolac 30mg/Ml Vial IV 06/17/23 20:01 15 mg ONCE ONE Administration Lidocaine HCl 20 ml 06/17/23 20:37 06/17/23 21:20 Lidocaine 1% 20ml Mdv SQ 06/17/23 20:38 20 ml ONCE ONE Administration Methylprednisolone Sodium Succinate 125 mg 06/17/23 20:00 06/17/23 20:10 Methylprednisolone Sod Succ 125mg Vial IV 06/17/23 20:01 125 mg ONCE ONE Administration ORDERS Category Date Time Status XR knee LT 3V Stat Exams 06/17/23 19:58 Completed CBC w/Auto Diff [Complete Blood Count Auto Diff] Stat Lab 06/17/23 20:14 Completed CMP [Comprehensive Metabolic Panel] Stat Lab 06/17/23 20:14 Completed CRP [C-Reactive Protein] Stat Lab 06/17/23 20:[address] Synovial w/ Crystals Stat Lab 06/17/23 20:30 Received ESR [Erythrocyte Sedimentation Rate] Stat Lab 06/17/23 20:14 Completed Lactic Acid Stat Lab 06/17/23 20:14 Completed Uric Acid Stat Lab 06/17/23 20:14 Completed Blood Culture Stat Micro 06/17/23 20:20 Received Body Fluid Cult & Gram Stain Stat Micro 06/17/23 20:30 Received Medical Decision Narrative: 42-year-old male history of gout, hypertension, hyperlipidemia, bursitis presenting with knee pain. Patient states that the knee pain started a couple days prior to this visit. He was carrying a large bag of feed and slipped. His foot went laterally and posteriorly and he had immediate pain. Denies hearing a pop. He has been able to ambulate since that time, but has had significant pain has been worsening. Has taken hydrocodone that he has at home as well as Tylenol, this has not helped with the pain. It is currently severe, and does not radiate at rest. No fevers or chills, nausea or vomiting. History obtained with patient. On arrival, patient hemodynamically stable, alert, afebrile, nontachycardic. Left knee is swollen, red, tender with large effusion. Range of motion intact, but limited secondary to pain. Structurally intact and neurovascular intact distally. Differential includes gout flare, ligamentous injury, fracture, septic joint, among others. Patient took Tylenol before arriving, he was given Toradol and Solu-Medrol here in the emergency department for symptomatic management and correction of underlying abnormalities. Independently interpreted and significant for no leukocytosis. ESR elevated at 96, CRP elevated at 92. Uric acid elevated at 9.9. Synovial fluid was aspirated from the left knee using lateral approach, fluid is cloudy, yellow, but viscous. Minimal blood. Labs are sent to [facility] and [facility] laboratory. Prior to return results, care was handed off to oncoming physician. Procedures Joint Aspiration/Injection Joint Asp./Inject. 1: Time Out Performed: No Side of body: left Joint Aspirated: knee Ultrasound Guidance: No Skin Prep: Chlorhexidine Local Anesthetic: lidocaine 1% Amount of anesthesia used (mL): 10 Needle Size Used: 18G Fluid Obtained: viscous (cloudy, straw colored) Total fluid obtained (mL): 45 Critical Care Critical Care Time Critical Care Time: No
--- NOTE | 2023-06-17 20:06 | PC.NURSE ---
contacted warehouse guard, spoke with trish hairston; requested possible transport for synovial fluid. she will call back
[2023-06-17] MEDS: METHYLPREDNISOLONE SOD SUCC 125MG VIAL 125 MG IV (20:10)
[2023-06-17] MEDS: KETOROLAC 30MG/ML VIAL 15 MG IV (20:10)
--- NOTE | 2023-06-17 20:12 | PC.NURSE ---
was advised per house that we have a maintenance oncall person who can transport the fluid once we obtain it. contacted lab, spoke with duane. stated to obtain a 'purple top, green top, and a sterile urine specimen cup' and label synovial fluid. advised dr guaman of the instructions.
[2023-06-17 20:29] LABS: Basophils % 0.3 % (0.1-2.0); Eosinophils # 0.1 K/mm3 (0.0-0.4); Eosinophils % 0.7 % (0.1-12.0); Hematocrit 37.7 % (42.0-52.0); Hemoglobin 12.6 g/dL (14.1-18.0); Lymphocytes # 1.4 K/mm3 (0.7-4.5); Lymphocytes % 13.5 % (10-50); Mean Corpuscular HGB Conc 33.5 g/dL (31.8-35.4); Mean Corpuscular Hemoglobin 33.9 pg (27.0-31.2); Mean Corpuscular Volume 101.2 fl (80-94); Mean Platelet Volume 7.4 fl (7.4-10.4); Monocytes # 0.8 K/mm3 (0.1-1.0); Monocytes % 7.3 % (1.7-9.3); Neutrophils # 8.2 K/mm3 (1.8-7.8); Neutrophils % 78.2 % (37.0-80.0); Platelet Count 299 K/mm3 (142-424); Red Blood Count 3.72 M/mm3 (4.60-6.20); Red Cell Distribution Width 13.2 % (11.5-17.5); White Blood Count 10.5 K/mm3 (4.8-10.8)
[2023-06-17 20:43] LABS: Alanine Aminotransferase 42 U/L (12-78); Albumin Level 4.5 g/dl (3.5-5.0); Albumin/Globulin Ratio 1.4 (1.1-1.8); Alkaline Phosphatase 142 U/L (38-126); Anion Gap 11.7 mEq/L (5-15); Aspartate Amino Transferase 36 U/L (17-59); Bilirubin,Total 0.9 mg/dl (0.2-1.3); Blood Urea Nitrogen 9 mg/dl (9-20); Calcium 9.1 mg/dl (8.4-10.2); Carbon Dioxide 24 mmol/L (22.0-30.0); Chloride 105 mmol/L (98-107); Creatinine Clearance Estimated 112 mL/min (50-200); Estimated Glomerular Filt Rate 73 ml/min (>60); GFR (African American) 89 ML/MIN (>60); Globulin 3.3 g/dL (1.3-3.2); Glucose 130 mg/dl (74-100); Potassium 3.7 mmoL/L (3.5-5.1); Sodium 137 mmol/L (136-145); Total Protein,Serum 7.8 g/dl (6.3-8.2); Uric Acid 9.9 mg/dl (3.5-8.5)
[2023-06-17 20:44] LABS: Lactic Acid 1.2 mmol/L (0.7-2.1)
[2023-06-17 20:49] LABS: C-Reactive Protein 91.6 mg/L (0-4)
[2023-06-17 20:52] LABS: Erythrocyte Sedimentation Rate 96 mm/hr (0-15)
[2023-06-17] MEDS: LIDOCAINE 1% 20ML MDV 20 ML SQ (21:20)
[2023-06-18] VITALS: BP 130/74; PULSE 81; O2SAT 95
[2023-06-18 00:08] LABS: Clarity,Fluid Cloudy
[2023-06-18 00:11] LABS: Color,Fluid Yellow
[2023-06-18 00:30] VITALS: BP 127/80; PULSE 83; RESP 18; O2SAT 96
[2023-06-18 01:00] VITALS: BP 122/74; PULSE 80; RESP 16; O2SAT 97
--- NOTE | 2023-06-18 01:31 | PC.NURSE ---
rounded on pt multiple times. Pt reports no needs. Pt states he is ready to go home, but understands reason for waiting on result.
[2023-06-18 01:51] VITALS: BP 121/74; PULSE 78; RESP 19; TEMP 36.8; O2SAT 98
[2023-06-18 04:12] LABS: Nucleated cells, Syn. Fluid 15033 uL; Polys,Fluid 14281 uL; RBC,Fluid 3000 uL
[2023-06-18 04:13] LABS: Eosinophils,Fluid 0 uL; Lymphocytes,Fluid 0 uL; Macrophages,Fluid 752 uL
[2023-06-18 04:14] LABS: Lining Cells, Synovial Fld 0 uL
--- NOTE | 2023-06-20 09:22 | PC.NURSE ---
syn fluid results reviewed with , ntd at this time
== END 2023-06-18 01:59 | disposition home or self-care (01) ==
PROVIDERS: Emergency Provider Emergency Medicine; PCP Internal Medicine
DX: M25.562 Pain in left knee (principal); M25.462 Effusion, left knee; I10 Essential (primary) hypertension; E78.5 Hyperlipidemia, unspecified; W01.10XA Fall on same level from slipping, tripping and stumbling with subsequent striking against unspecified object, initial encounter
CPT/HCPCS: 20610; 73562; 80053; 83605; 84550; 85025; 85651; 86140; 87040; 87070; 87205; 89051; 96374; 96375; 99285

== ENCOUNTER 2023-09-23 19:32 | Emergency (ER) | payer OTHER, SELFPAY ==
[2023-09-23 19:40] VITALS: BP 148/106; PULSE 117; RESP 16; TEMP 36.7; O2SAT 97; BMI 26.4
[2023-09-23 20:06] VITALS: BP 150/97; PULSE 113; RESP 22; TEMP 36.8; O2SAT 97
--- NOTE | 2023-09-23 20:06 | [facility].EDGENADL ---
Discharge Plan Disposition Patient Disposition: Home, Self-Care Prescriptions Prescriptions: New dexamethasone 2 mg tablet 10 mg PO ONCE Qty: 5 0RF Rx Instructions: Please take 48-72 hours after ED dose No Action colchicine 0.6 mg tablet See Rx Instructions .ROUTE .COMPLEX Qty: 90 0RF Dose Instruction: TAKE 2 TABLETS BY MOUTH AT FIRST SIGN OF FLARE FOLLOWED BY 1 TABLET 1 HOUR LATER. TAKE TAKE 1 TABLET BY MOUTH DAILY THEREAFTER. Rx Instructions: TAKE 2 TABLETS BY MOUTH AT FIRST SIGN OF FLARE FOLLOWED BY 1 TABLET 1 HOUR LATER. TAKE TAKE 1 TABLET BY MOUTH DAILY THEREAFTER. lisinopril 10 mg tablet See Rx Instructions .ROUTE .COMPLEX Qty: 90 0RF Dose Instruction: TAKE 1 TABLET BY MOUTH ONCE DAILY Rx Instructions: TAKE 1 TABLET BY MOUTH ONCE DAILY omega-3 acid ethyl esters 1 gram capsule See Rx Instructions .ROUTE .COMPLEX Qty: 30 1RF Dose Instruction: TAKE 1 CAPSULE BY MOUTH ONCE DAILY Rx Instructions: TAKE 1 CAPSULE BY MOUTH ONCE DAILY amitriptyline 25 mg tablet See Rx Instructions .ROUTE .COMPLEX Qty: 30 1RF Dose Instruction: TAKE 1 TABLET BY MOUTH AT BEDTIME NIGHTLY Rx Instructions: TAKE 1 TABLET BY MOUTH AT BEDTIME NIGHTLY hydrocodone-acetaminophen 7.5-325 mg tablet 1 tab PO QID PRN (Reason: pain) 3 Days Qty: 12 0RF indomethacin 50 mg capsule 50 mg PO TID Qty: 21 0RF Rx Instructions: administer with food or milk Referrals Follow up/Referrals: Jeet Rodriguez DO [Primary Care Provider] - See instructions Activity Restrictions/Add. Instructions Additional Instructions/Restrictions: Your symptoms are consistent with an acute gout exacerbation. Additionally the bump that you described in your toe is consistent with a gout tophi. These are deposits of crystals do not cut into these as you stated that you were thinking about. Please return with any high fevers or other concerns. Please take your next dose of steroids in 72 hours if you are not significantly improved. You may continue to take your other anti-inflammatory medication such as indomethacin and/or colchicine as previously instructed. Clinical Impressions Clinical Impression: Gout attack, Gout tophi Discharge ED Provider: Lizet Perez General Adult HPI General Chief complaint: PAIN Stated complaint: Swollen left foot Time Seen by Provider: 09/23/23 19:49 Mode of Arrival: Ambulatory Source of Information: Patient Limitations: No Limitations Description of Symptoms (Recalled from ER Triage Doc. by RN): pt c/o L foot pain that is aching in nature and 15/10. pt reports he has had a gout flare up ongoing for 2wks without any relief. pt states he genrally comes in for a steroid injection then it improves. Upon assessment the pts foot is edematous and red. History of Present Illness HPI narrative: Patient is a 42-year-old with a known history of gout with many exacerbations in the past who states that he is having an exacerbation of his known gout. States that he has had fluid that has been taken off of his joints in the past and has confirmed diagnosis. No fevers or chills or alternative concerns. States he typically gets a shot of steroids with significant improvement in symptoms he has already been taking indomethacin and colchicine at home. Related Data Previous Rx's Medication Instructions Recorded colchicine 0.6 mg tablet See Rx Instructions .Route 05/03/23 .COMPLEX #90 tabs lisinopril 10 mg tablet See Rx Instructions .Route 05/03/23 .COMPLEX #90 tabs indomethacin 50 mg capsule 50 mg PO TID #21 caps 06/05/23 omega-3 acid ethyl esters 1 gram See Rx Instructions .Route 07/25/23 capsule .COMPLEX #30 caps amitriptyline 25 mg tablet See Rx Instructions .Route 08/23/23 .COMPLEX #30 tabs dexamethasone 2 mg tablet 10 mg (5 x 2 mg) PO ONCE #5 tabs 09/23/23 hydrocodone 7.5 mg-acetaminophen 1 tab PO QID PRN pain 3 days #12 09/23/23 325 mg tablet tabs Allergies Allergy/AdvReac Type Severity Reaction Status Date / Time No Known Allergies Allergy Verified 09/23/23 19:[address] [facility] Disclaimer: The information contained in this section may have been updated after the patient was seen, as this information can be updated by other users. Medical History Sleep apnea Gout Carpal tunnel syndrome History of gastroesophageal reflux (GERD) Surgical History No significant past surgical history Family History Other Family history of acute congestive heart failure Family history of diabetes mellitus type II Social History (Updated 08/02/23 @ 13:10 by DARRIN Rivera) Smoking Status: Current every day smoker tobacco type: cigarettes packs per day: 1 alcohol intake: never substance use type: other current occupational status: employed and other Travel in the last 8 weeks: None household members: other housing: house caffeine: Yes ROS Obtained: Yes All systems reviewed & no additional complaints except as documented Physical Exam General General appearance: alert and in no apparent distress Respiratory Respiratory exam: Present normal lung sounds bilaterally Cardiovascular Cardiovascular exam: Present regular rate Extremities Exam Extremities exam: Present other (Bilateral feet and ankles are swollen erythematous and tender he also has gout tophi in the toes of the left foot) Neurological Exam Neurological exam: Present alert and oriented X3 Medical Decision Making [place] Inquiry Pt receiving controlled substance: No Vital Signs: 09/23/23 19:40 Temperature 98.1 F Temperature Source Oral Pulse Rate [Left] 117 H Respiratory Rate 16 Blood Pressure [Right Arm] 148/106 H Blood Pressure Mean [Right Arm] 120 Blood Pressure Source [Right Arm] Automatic Cuff Blood Pressure Position [Right Arm] Sitting 02 Sat by Pulse Oximetry 97 Oxygen Delivery Method Room Air Orders (Tests/Meds): ED MEDICATIONS Generic Name Dose Route Start Last Admin Trade Name Freq PRN Reason Stop Dose Admin Dexamethasone Sodium Phosphate 10 mg 09/23/23 20:03 Dexamethasone 4mg/Ml 1ml Vial IM 09/23/23 20:04 ONCE ONE Ketorolac Tromethamine 60 mg 09/23/23 20:03 Ketorolac 60mg/2ml Vial IM 09/23/23 20:04 ONCE ONE Medical Decision Narrative: 42-year-old presenting today with gout exacerbation. I am not concerned about septic joint in this presentation as he states this is very similar to his previous gout exacerbations. He will return with any fever or systemic signs or symptoms of illness. Dexamethasone Toradol have been administered he has been also given a prescription of dexamethasone to take in 72 hours if he continues to have symptoms. He may continue his indomethacin and colchicine and follow-up with primary care doctor return with any worsening symptoms. Critical Care Critical Care Time Critical Care Time: No
[2023-09-23] MEDS: DEXAMETHASONE 4MG/ML 1ML VIAL 10 MG IM (20:14)
[2023-09-23] MEDS: KETOROLAC 60MG/2ML VIAL 60 MG IM (20:15)
== END 2023-09-23 20:20 | disposition home or self-care (01) ==
PROVIDERS: Emergency Provider Student in an Organized Health Care Education/Training Program; PCP Internal Medicine
DX: M10.072 Idiopathic gout, left ankle and foot (principal); M79.672 Pain in left foot; F17.210 Nicotine dependence, cigarettes, uncomplicated
CPT/HCPCS: 96372; 99283; J1100; J1885

== ENCOUNTER 2023-11-23 16:58 | Emergency (ER) | payer OTHER, SELFPAY ==
[2023-11-23 17:00] VITALS: BP 155/100; PULSE 115; RESP 18; TEMP 36.8; O2SAT 98; BMI 28.4
--- NOTE | 2023-11-23 17:14 | PC.NURSE ---
DR FRANCISCO AT BEDSIDE
[2023-11-23] MEDS: DEXAMETHASONE 4MG/ML 1ML VIAL 10 MG IM (17:29)
--- NOTE | 2023-11-23 17:29 | PC.NURSE ---
DR FRANCISCO AT BEDSIDE TO UPDATE PT ON POC
[2023-11-23] MEDS: KETOROLAC 30MG/ML VIAL 30 MG IM (17:30)
--- NOTE | 2023-11-23 17:31 | HMH.EDGENADL ---
Discharge Plan Disposition Patient Disposition: Home, Self-Care Condition: Good Prescriptions Prescriptions: New indomethacin 50 mg capsule 50 mg PO TID 5 Days Qty: 15 0RF Rx Instructions: administer with food or milk dexamethasone 2 mg tablet 10 mg PO ONCE Qty: 5 0RF Rx Instructions: Please take this 72 hours after your initial dose (11/26/23), which was given 11/23/2023 at 5:30 PM. No Action triamcinolone acetonide 0.5 % cream 1 applic topical TID Qty: 15 2RF colchicine 0.6 mg tablet See Rx Instructions .ROUTE .COMPLEX Qty: 90 0RF Dose Instruction: TAKE 2 TABLETS BY MOUTH AT FIRST SIGN OF FLARE FOLLOWED BY 1 TABLET 1 HOUR LATER. TAKE 1 TABLET BY MOUTH DAILY THEREAFTER. Rx Instructions: TAKE 2 TABLETS BY MOUTH AT FIRST SIGN OF FLARE FOLLOWED BY 1 TABLET 1 HOUR LATER. TAKE 1 TABLET BY MOUTH DAILY THEREAFTER. allopurinol 100 mg tablet 100 mg PO DAILY 90 Days Qty: 90 4RF amitriptyline 25 mg tablet 25 mg PO HS 90 Days Qty: 90 4RF hydrocodone-acetaminophen 7.5-325 mg tablet 1 tab PO QID PRN (Reason: pain) 3 Days Qty: 120 0RF lisinopril 10 mg tablet 10 mg PO DAILY 90 Days Qty: 90 4RF omega-3 acid ethyl esters 1 gram capsule 1 cap PO DAILY 90 Days Qty: 90 4RF indomethacin 50 mg capsule 50 mg PO TID Qty: 21 0RF Rx Instructions: administer with food or milk dexamethasone 2 mg tablet 10 mg PO ONCE Qty: 5 0RF Rx Instructions: Please take 48-72 hours after ED dose Referrals Follow up/Referrals: Jeet Rodriguez DO [Primary Care Provider] - See instructions Activity Restrictions/Add. Instructions Additional Instructions/Restrictions: You were evaluated in the emergency department today. 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 I am prescribing indomethacin to treat the acute pain and inflammation as well as a dose of dexamethasone to take in 72 hours if you are still having symptoms. This is a strong steroid. Please follow-up with your primary care provider for refills of colchicine and allopurinol. If you continue to have gout flares that are refractory to these treatments and the allopurinol that you are on at home, your primary care provider can try other medications as they see fit. You may also choose to continue following up with orthopedics for further evaluation and management to see if they recommend any other therapy as well. Return to the emergency department if your symptoms are persistent and more severe despite the medications or if you develop any infectious symptoms such as fever. Clinical Impressions Clinical Impression: Gout attack Stand Alone Forms Stand Alone Forms: Work/School Release Instructions Patient Instructions: DI for Gout, DI for Acute Pain -- Adult Print Language Print Language: Czech Discharge ED Provider: Norma Tohmas General Adult HPI General Chief complaint: PAIN Stated complaint: right hand/foot poss. gout Time Seen by Provider: 11/23/23 17:10 Mode of Arrival: Ambulatory Limitations: No Limitations Description of Symptoms (Recalled from ER Triage Doc. by RN): PT REPORTS ONGOING RIGHT HAND AND WRIST PAIN FOR 2 MONTHS, PAIN WORSE TODAY. NO INJURY History of Present Illness HPI narrative: This patient is a 42-year-old male with a history of alcohol abuse and recurrent gouty arthritis presenting with concern for gout flareup. He states that it is always in his right hand and right foot, and that is where he is experiencing pain today. He states that he tried to hold off and see if his albuterol at home will take care of it, but the pain got worse. He notes he was previously on colchicine, but his primary care provider did not refill this. He is also seen orthopedics in the past for this issue. No new symptoms to suggest other issue, such as fevers, chills, or other infectious symptoms. Related Data Previous Rx's ?Medication ?Instructions ?Recorded indomethacin 50 mg capsule 50 mg PO TID #21 caps 06/05/23 dexamethasone 2 mg tablet 10 mg (5 x 2 mg) PO ONCE #5 tabs 09/23/23 triamcinolone acetonide 0.5 % 1 applic topical TID #15 grams 10/25/23 topical cream colchicine 0.6 mg tablet See Rx Instructions .Route 10/26/23 .COMPLEX #90 tabs allopurinol 100 mg tablet 100 mg PO DAILY 90 days #90 tabs 11/21/23 amitriptyline 25 mg tablet 25 mg PO HS 90 days #90 tabs 11/21/23 hydrocodone 7.5 mg-acetaminophen 1 tab PO QID PRN pain 3 days #120 11/21/23 325 mg tablet tabs lisinopril 10 mg tablet 10 mg PO DAILY 90 days #90 tabs 11/21/23 omega-3 acid ethyl esters 1 gram 1 cap PO DAILY 90 days #90 caps 11/21/23 capsule dexamethasone 2 mg tablet 10 mg (5 x 2 mg) PO ONCE #5 tabs 11/23/23 indomethacin 50 mg capsule 50 mg PO TID 5 days #15 caps 11/23/23 Allergies Allergy/AdvReac Type Severity Reaction Status Date / Time No Known Allergies Allergy Verified 11/03/23 09:55 [facility] Disclaimer: The information contained in this section may have been updated after the patient was seen, as this information can be updated by other users. 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 Dermatitis of both feet Dysfunction of right hand Sleep apnea Gout Carpal tunnel syndrome History of gastroesophageal reflux (GERD) Surgical History No significant past surgical history Family History Other Family history of acute congestive heart failure Family history of diabetes mellitus type II Social History Smoking Status: Current every day smoker tobacco type: cigarettes packs per day: 1 alcohol intake: never substance use type: other current occupational status: employed and other Travel in the last 8 weeks: None household members: other housing: house caffeine: Yes ROS Obtained: Yes All systems reviewed & no additional complaints except as documented Physical Exam General General appearance: alert and in no apparent distress Head Head exam: atraumatic and normocephalic Eye Eye exam: Present normal appearance, PERRL and EOMI ENT ENT exam: Present normal exam, normal oropharynx, mucous membranes moist and normal external ear exam Neck Neck exam: Present normal inspection, full ROM and trachea midline; Absent tenderness Chest Chest inspection: Present normal inspection and symmetric chest wall rise; Absent tenderness Respiratory Respiratory exam: Present normal lung sounds bilaterally; Absent respiratory distress, wheezes, stridor or accessory muscle use Cardiovascular Cardiovascular exam: Present regular rate and normal rhythm Abdominal Exam Abdominal exam: Present soft; Absent distention, tenderness or guarding Extremities Exam Extremities exam: Present full ROM, tenderness, normal capillary refill, edema and other (Tenderness to palpation and edema of the right hand and foot. Neurovascularly intact.) Back Exam Back exam: Present normal inspection and full ROM; Absent tenderness Neurological Exam Neurological exam: Present alert, oriented X3, CN II-XII intact and normal gait; Absent motor sensory deficit Psychiatric Psychiatric exam: Present normal affect and normal mood Skin Skin exam: Present warm and dry Medical Decision Making Medical Records Medical records reviewed: Yes I reviewed the patient's medical records. [place]ko Inquiry Pt receiving controlled substance: No Vital Signs: 11/23/23 17:00 Temperature 98.3 F Temperature Source Oral Pulse Rate [Radial] 115 H Respiratory Rate 18 Blood Pressure [Left Arm] 155/100 H Blood Pressure Mean [Left Arm] 118 Blood Pressure Source [Left Arm] Automatic Cuff Blood Pressure Position [Left Arm] Sitting 02 Sat by Pulse Oximetry 98 Oxygen Delivery Method Room Air Lab Data Lab results reviewed: Yes I reviewed the patient's lab results. Orders (Tests/Meds): ED MEDICATIONS Discontinued Medications Generic Name Dose Route Start Last Admin Trade Name Purvi PRN Reason Stop Dose Admin Dexamethasone Sodium Phosphate 10 mg 11/23/23 17:18 11/23/23 17:29 Dexamethasone 4mg/Ml 1ml Vial IM 11/23/23 17:19 10 mg ONCE ONE Administration Ketorolac Tromethamine 30 mg 11/23/23 17:18 11/23/23 17:30 Ketorolac 30mg/Ml Vial IM 11/23/23 17:19 30 mg ONCE ONE Administration Medical Decision Narrative: In summary, this patient is a 42-year-old male presenting to the Emergency Department for evaluation of gout flare. Differential diagnoses considered include but are not limited to gouty arthritis, septic arthritis, inflammatory arthritis, osteoarthritis. Ruling out the most morbid conditions drove assessment. It should be noted patient's history includes recurrent gout and alcohol abuse which are not at goal therapy. This complicates all aspects of care by increasing patient's risk for morbidity. I reviewed patient's past medical records and noted multiple previous evaluations here as well as outpatient with PCP and orthopedics for similar complaint. On exam, the patient is well-appearing. He states that his symptoms at the same as prior gout flares. It is also affecting the same joints. No new symptoms to suggest acute infection. He states that usually he gets a steroid shot and an anti-inflammatory shot and then follows up with primary care. Will administer IM dexamethasone and Toradol here. 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 I prescribed him indomethacin to treat inflammation as well as gave him a second dose of dexamethasone to take in 72 hours if he still having significant inflammation. I advise that he follow-up very closely with primary care as well as orthopedics for further evaluation and management to prevent recurrent steroid use in the emergency department setting. He expressed understanding and agreement. He was discharged with strict return precautions. Critical Care Critical Care Time Critical Care Time: No
[2023-11-23 17:32] VITALS: BP 147/88; PULSE 95; RESP 20; TEMP 36.8; O2SAT 97
== END 2023-11-23 17:35 | disposition home or self-care (01) ==
PROVIDERS: Emergency Provider Emergency Medicine; PCP Internal Medicine
DX: M10.041 Idiopathic gout, right hand (principal); M10.071 Idiopathic gout, right ankle and foot; M79.641 Pain in right hand; M79.671 Pain in right foot; F17.210 Nicotine dependence, cigarettes, uncomplicated; F10.11 Alcohol abuse, in remission
CPT/HCPCS: 96372; J1100; J1885

== ENCOUNTER 2023-11-28 13:57 | Emergency (ER) | payer OTHER, SELFPAY ==
[2023-11-28 14:05] VITALS: BP 176/104; PULSE 104; RESP 16; TEMP 36.6; O2SAT 100; BMI 28.7
--- NOTE | 2023-11-28 14:09 | ED_ITS ---
<Statement entered by Lizet Perez MD - 11/28/23 15:12> I was consulted by the LAURA, and we discussed the complexity of the problems being addressed. I approved the treatment and management plan for this patient's care in the emergency department, thus performing a substantive portion of the medical decision making. Lizet Perez MD, ANNAMARIE, FACEP Discharge Plan Disposition Patient Disposition: Home, Self-Care Condition: Good Prescriptions Prescriptions: New colchicine 0.6 mg tablet See Rx Instructions .ROUTE .COMPLEX Qty: 30 0RF Rx Instructions: 1.2 mg orally at the start of gout flare and then 0.6 mg 1 hour later. Do not exceed 1.8 mg in a 1 hour period. May repeat 0.6 mg in 12 hours. No Action triamcinolone acetonide 0.5 % cream 1 applic topical TID Qty: 15 2RF colchicine 0.6 mg tablet See Rx Instructions .ROUTE .COMPLEX Qty: 90 0RF Dose Instruction: TAKE 2 TABLETS BY MOUTH AT FIRST SIGN OF FLARE FOLLOWED BY 1 TABLET 1 HOUR LATER. TAKE 1 TABLET BY MOUTH DAILY THEREAFTER. Rx Instructions: TAKE 2 TABLETS BY MOUTH AT FIRST SIGN OF FLARE FOLLOWED BY 1 TABLET 1 HOUR LATER. TAKE 1 TABLET BY MOUTH DAILY THEREAFTER. allopurinol 100 mg tablet 100 mg PO DAILY 90 Days Qty: 90 4RF amitriptyline 25 mg tablet 25 mg PO HS 90 Days Qty: 90 4RF hydrocodone-acetaminophen 7.5-325 mg tablet 1 tab PO QID PRN (Reason: pain) 3 Days Qty: 120 0RF lisinopril 10 mg tablet 10 mg PO DAILY 90 Days Qty: 90 4RF omega-3 acid ethyl esters 1 gram capsule 1 cap PO DAILY 90 Days Qty: 90 4RF indomethacin 50 mg capsule 50 mg PO TID 5 Days Qty: 15 0RF Rx Instructions: administer with food or milk Referrals Follow up/Referrals: Jeet Rodriguez DO [Primary Care Provider] - See instructions Activity Restrictions/Add. Instructions Additional Instructions/Restrictions: Please follow-up with your PCP for referral to rheumatology. Return to ER for any worsening signs or symptoms as needed. Clinical Impressions Clinical Impression: Gout flare Instructions Patient Instructions: DI for Gout Print Language Print Language: Palestinian Discharge ED Provider: Lizet Perez General Adult HPI General Chief complaint: PAIN Stated complaint: gout in feet and hands Time Seen by Provider: 11/28/23 14:08 Mode of Arrival: Ambulatory Source of Information: Patient Limitations: No Limitations Description of Symptoms (Recalled from ER Triage Doc. by RN): Pt. states he is having pain from gout in his bilateral feet and right hand. He states he was in here last week for a flair and was given steroids that helped mildly but now he states its worse than it was last week. History of Present Illness HPI narrative: Patient presents for he has never seen rheumatology for his gout. He is not clear what medicine he takes every day but his medication list has both allopurinol and indomethacin. Related Data Previous Rx's ?Medication ?Instructions ?Recorded triamcinolone acetonide 0.5 % 1 applic topical TID #15 grams 10/25/23 topical cream colchicine 0.6 mg tablet See Rx Instructions .Route 10/26/23 .COMPLEX #90 tabs allopurinol 100 mg tablet 100 mg PO DAILY 90 days #90 tabs 11/21/23 amitriptyline 25 mg tablet 25 mg PO HS 90 days #90 tabs 11/21/23 hydrocodone 7.5 mg-acetaminophen 1 tab PO QID PRN pain 3 days #120 11/21/23 325 mg tablet tabs lisinopril 10 mg tablet 10 mg PO DAILY 90 days #90 tabs 11/21/23 omega-3 acid ethyl esters 1 gram 1 cap PO DAILY 90 days #90 caps 11/21/23 capsule indomethacin 50 mg capsule 50 mg PO TID 5 days #15 caps 11/23/23 colchicine 0.6 mg tablet See Rx Instructions .Route 11/28/23 .COMPLEX #30 tabs Allergies Allergy/AdvReac Type Severity Reaction Status Date / Time No Known Allergies Allergy Verified 11/03/23 09:55 [facility] Disclaimer: The information contained in this section may have been updated after the patient was seen, as this information can be updated by other users. 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 Dermatitis of both feet Dysfunction of right hand Sleep apnea Gout Carpal tunnel syndrome History of gastroesophageal reflux (GERD) Surgical History No significant past surgical history Family History Other Family history of acute congestive heart failure Family history of diabetes mellitus type II Social History Smoking Status: Current every day smoker tobacco type: cigarettes packs per day: 1 alcohol intake: never substance use type: other current occupational status: employed and other Travel in the last 8 weeks: None household members: other housing: house caffeine: Yes ROS Obtained: Yes Systems reviewed as appropriate & no additional complaints except as documented Physical Exam General General appearance: alert and in no apparent distress Respiratory Respiratory exam: Present normal lung sounds bilaterally Cardiovascular Cardiovascular exam: Present regular rate and normal rhythm Neurological Exam Neurological exam: Present alert and oriented X3 Medical Decision Making Medical Records Medical records reviewed: Yes I reviewed the patient's medical records. Cheko Inquiry Pt receiving controlled substance: No Vital Signs: 11/28/23 14:05 Temperature 97.9 F Temperature Source Oral Pulse Rate [Left Brachial] 104 H Respiratory Rate 16 Blood Pressure [Left Arm] 176/104 H Blood Pressure Mean [Left Arm] 128 Blood Pressure Source [Left Arm] Automatic Cuff Blood Pressure Position [Left Arm] Sitting 02 Sat by Pulse Oximetry 100 Oxygen Delivery Method Room Air Lab Data Lab results reviewed: Yes I reviewed the patient's lab results. Orders (Tests/Meds): ED MEDICATIONS Discontinued Medications Generic Name Dose Route Start Last Admin Trade Name Freq PRN Reason Stop Dose Admin Ketorolac Tromethamine 60 mg 11/28/23 14:19 11/28/23 14:27 Ketorolac 60mg/2ml Vial IM 11/28/23 14:20 60 mg ONCE ONE Administration Prednisone 60 mg 11/28/23 14:19 11/28/23 14:27 Prednisone 20mg Tab PO 11/28/23 14:20 60 mg ONCE ONE Administration Medical Decision Narrative: In summary patient is a 42-year-old male who presents to the emergency department for evaluation of polyarthralgia. Patient is hemodynamically stable upon arrival, afebrile. Physical exam is remarkable for swelling to the right hand along with painful palpation, painful bilateral ankles, but notable for no erythema or visible joint involvement. Review of his chart shows that lab work done in June of this year showed a significant elevated CRP and synovial analysis did not reveal any crystals. I do not know if the patient truly has gout but his uric acid level was 9.9. Differential diagnosis includes polyarthralgia versus gouty arthritis versus soft tissue gout etc. Initial workup was considered however diagnostic tests for true confirmatory testing are all send outs not applicable to the ER thus deferred. Initial interventions include IM Toradol prednisone. . Upon repeat evaluation had some improvement in his pain. Given this patient is appropriate for discharge with prescription for both colchicine and prednisone. I have strongly advised patient to be referred to rheumatology for further workup of his polyarthralgia and confirmation that this is truly gouty arthritis Critical Care Critical Care Time Critical Care Time: No
[2023-11-28] MEDS: KETOROLAC 60MG/2ML VIAL 60 MG IM (14:27)
[2023-11-28] MEDS: predniSONE 20MG TAB 60 MG PO (14:27)
[2023-11-28 14:51] VITALS: BP 176/104; PULSE 104; RESP 16; TEMP 36.6; O2SAT 100
== END 2023-11-28 14:52 | disposition home or self-care (01) ==
PROVIDERS: Emergency Provider Student in an Organized Health Care Education/Training Program; PCP Internal Medicine
DX: M10.041 Idiopathic gout, right hand (principal); M10.071 Idiopathic gout, right ankle and foot; M10.072 Idiopathic gout, left ankle and foot
CPT/HCPCS: 96372; 99283; J1885

== ENCOUNTER 2023-12-23 17:00 | Emergency (ER) | payer OTHER, SELFPAY ==
[2023-12-23 17:31] VITALS: BP 158/101; PULSE 101; RESP 20; TEMP 36.9; O2SAT 98; BMI 28.7
--- NOTE | 2023-12-23 17:43 | EXP.UTC ---
Discharge Plan Disposition Patient Disposition: Home, Self-Care Condition: Good Prescriptions Prescriptions: New amoxicillin-pot clavulanate 875-125 mg Tablet 1 tab PO Q12H Qty: 20 0RF ibuprofen [IBU] 800 mg tablet 800 mg PO TIDP PRN (Reason: Moderate Pain) Qty: 12 0RF No Action hydrocodone-acetaminophen 7.5-325 mg tablet 1 tab PO QID PRN (Reason: pain) 3 Days Qty: 120 0RF Referrals Follow up/Referrals: Jeet Rodriguez DO [Primary Care Provider] - See instructions Activity Restrictions/Add. Instructions Additional Instructions/Restrictions: Take medication as prescribed Use dental balls as prescribed Take Ibuprofen as prescribed Gargle warm salt water this may help to soothe the gums and help with dental pain Follow up with Dentist as soon as possible Clinical Impressions Clinical Impression: Dental abscess Instructions Patient Instructions: Tooth Abscess, DI for Tooth Abscess Print Language Print Language: Kazakh Discharge ED Provider: Valerie Smith [facility] General Stated complaint: Toothache Time Seen by Provider: 12/23/23 17:43 History of Present Illness Provider Complaint: Patient states that he has a broken tooth on the right upper back tooth that is broken off at the gumline States he has been having pain and swelling in that area worried it may be infected Related Data Previous Rx's ?Medication ?Instructions ?Recorded hydrocodone 7.5 mg-acetaminophen 1 tab PO QID PRN pain 3 days #120 12/21/23 325 mg tablet tabs amoxicillin 875 mg-potassium 1 tab PO Q12H #20 tabs 12/23/23 clavulanate 125 mg tablet ibuprofen 800 mg tablet (IBU) 800 mg PO TIDP PRN Moderate Pain 12/23/23 #12 tabs Allergies Allergy/AdvReac Type Severity Reaction Status Date / Time No Known Allergies Allergy Verified 11/03/23 09:55 [facility] Disclaimer: The information contained in this section may have been updated after the patient was seen, as this information can be updated by other users. 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 Dermatitis of both feet Dysfunction of right hand Sleep apnea Gout Carpal tunnel syndrome History of gastroesophageal reflux (GERD) Surgical History No significant past surgical history Family History Other Family history of acute congestive heart failure Family history of diabetes mellitus type II Social History Smoking Status: Current every day smoker tobacco type: cigarettes packs per day: 1 alcohol intake: never substance use type: other current occupational status: employed and other Travel in the last 8 weeks: None household members: other housing: house caffeine: Yes ROS Obtained: Yes All systems reviewed & no additional complaints except as documented and Yes Systems reviewed as appropriate & no additional complaints except as documented Constitutional Constitutional: Reports system reviewed and no additional complaints, except as documented and Reports as per HPI ENT Ears, Nose, Mouth, and Throat: Reports system reviewed and no additional complaints, except as documented, Reports as per HPI and Reports dental pain Cardiovascular Cardiovascular: Reports system reviewed and no additional complaints, except as documented and Reports as per HPI Respiratory Respiratory: Reports system reviewed and no additional complaints, except as documented and Reports as per HPI Physical Exam General General appearance: alert and in no apparent distress ENT ENT exam: Present mucous membranes moist Expanded ENT Exam Teeth exam: Present dental caries, fractured tooth #, dental tenderness # and gingival swelling Respiratory Respiratory exam: Present normal lung sounds bilaterally; Absent respiratory distress or wheezes Cardiovascular Cardiovascular exam: Present regular rate, normal rhythm and normal heart sounds Neurological Exam Neurological exam: Present alert, oriented X3 and normal gait Medical Decision Making Cheko Inquiry Pt receiving controlled substance: No [place]ko was queried for this patient: No
[2023-12-23] MEDS: TETRACAINE/BENZOCAINE/BUTAMBEN 56 GM SPRAY 10 GM TP (17:54)
[2023-12-23] MEDS: LIDOCAINE 2% VISCOUS SOL 15ML UDC 15 ML PO (17:54)
[2023-12-23 18:00] VITALS: BP 158/101; PULSE 101; RESP 20; TEMP 36.9
== END 2023-12-23 18:01 | disposition home or self-care (01) ==
PROVIDERS: Emergency Provider Nurse Practitioner; PCP Internal Medicine
DX: K04.7 Periapical abscess without sinus (principal)
CPT/HCPCS: 99212; 99214; G0463

== ENCOUNTER 2024-01-24 20:01 | Outpatient (CLI) | payer OTHER, SELFPAY ==
[2024-01-24 20:54] LABS: Cholesterol 269 mg/dl (140-200); Triglycerides 171 mg/dl (30-150); VLDL Cholesterol 34 mg/dL (0-40)
[2024-01-24 20:55] LABS: Chol/HDL Ratio 4.1 (1-3.5); HDL Cholesterol 65 mg/dl (40-60)
[2024-01-24 21:44] LABS: Vitamin B12 344 pg/mL (239-931)
== END 2024-01-24 23:59 | disposition home or self-care (01) ==
LOC: LAB.DROPOF 20:02
PROVIDERS: PCP Internal Medicine; Visit Provider Internal Medicine
DX: M10.9 Gout, unspecified (principal); K04.7 Periapical abscess without sinus
CPT/HCPCS: 80061; 82607

== ENCOUNTER 2024-02-13 15:25 | Emergency (ER) | payer OTHER, SELFPAY ==
[2024-02-13 15:50] VITALS: BP 168/93; PULSE 104; RESP 17; TEMP 36.8; O2SAT 100; BMI 32.4
--- NOTE | 2024-02-13 16:10 | ED_ITS ---
Discharge Plan Disposition Patient Disposition: Home, Self-Care Condition: Good Prescriptions Prescriptions: New dextromethorphan polistirex [Delsym 12 hour] 30 mg/5 mL suspension,extended rel 12 hr 10 ml PO Q12H PRN (Reason: cough) Qty: 89 0RF methylprednisolone [Medrol (Wei)] 4 mg tablets,dose pack See Rx Instructions .Route .COMPLEX 6 Days Qty: 21 0RF Rx Instructions: taper pack; amoxicillin-pot clavulanate 875-125 mg Tablet 1 tab PO Q12H Qty: 20 0RF guaifenesin [Mucinex] 1,200 mg tablet extended release 12hr 1,200 mg PO Q12H PRN (Reason: congestion) Qty: 20 0RF Referrals Follow up/Referrals: Jeet Rodriguez DO [Primary Care Provider] - See instructions Activity Restrictions/Add. Instructions Additional Instructions/Restrictions: * Start antibiotic today. Be sure to complete entire prescription even if feeling better * Monitor temp. Tylenol every 4 hours as needed and / or ibuprofen every 6 hours as needed ( As long as your primary care physician has told you that it ok to take both. For fever/aches/pains ER if no less than 101 despite Tylenol or Motrin * Humidifier/vaporizer or hot steamy shower * Mucinex during the day for your cough and cough suppressant only at night. Be sure to drink lots of water. *Start steroid tomorrow. Helps with inflammation therefore, cough and wheezing. Follow directions on the package. Reviewed side effects. Patient reports taking them before. Follow up IMMEDIATELY for new or worsening of symptoms OR no noticeable improvement over the next 48-72 hours. 911 immediately for any life threatening symptoms such as chest pain or difficulty breathing Clinical Impressions Clinical Impression: Bronchitis Sinusitis Qualifiers: Sinusitis location: unspecified location Chronicity: unspecified Qualified Code(s): J32.9 - Chronic sinusitis, unspecified Instructions Patient Instructions: Acute Bronchitis, DI for Sinusitis Print Language Print Language: Micronesian Discharge ED Provider: Valerie Smith [facility] General Stated complaint: h/a, cough Mode of Arrival: Ambulatory Source of Information: Patient Limitations: No Limitations Time Seen by Provider: 02/13/24 16:10 Description of Symptoms (Recalled from Triage Doc. by RN): PATIENT C/O HEADACHE, BURNING UP , PRODUCTIVE COUGH, AND WHEEZING THAT STARTED APPROX 1 WEEK AGO HEENT Symptoms (Recalled from RN notes): Yes Resp Symptoms (Recalled from RN notes): Yes Skin Symptoms (Recalled from RN notes): No MS Symptoms (Recalled from RN notes): No Functional Status (Recalled from RN notes): WNL History of Present Illness Provider Complaint: Patient states that he has been having sinus pain and pressure, sinus headache, productive cough and at times when he wakes up in the morning he has some wheezing that goes away as the day goes on states he feels like he is having drainage in the back of his throat that is moving into his lungs so today when he was still not feeling any better he came in to get checked and get something to help with headache and congestion Related Data Previous Rx's ?Medication ?Instructions ?Recorded amoxicillin 875 mg-potassium 1 tab PO Q12H #20 tabs 02/13/24 clavulanate 125 mg tablet dextromethorphan polistirex 30 10 ml PO Q12H PRN cough #89 mL 02/13/24 mg/5 mL oral susp ext.release 12hr (Delsym 12 hour) guaifenesin 1,200 mg tablet, 1,200 mg PO Q12H PRN congestion 02/13/24 extended release 12 hr (Mucinex) #20 tabs methylprednisolone 4 mg tablets in See Rx Instructions .Route 02/13/24 a dose pack (Medrol (Wei)) .COMPLEX 6 days #21 tabs Allergies Allergy/AdvReac Type Severity Reaction Status Date / Time No Known Allergies Allergy Verified 01/24/24 11:19 Worker's Comp Is this a Worker's Comp case?: No [facility] Disclaimer: The information contained in this section may have been updated after the patient was seen, as this information can be updated by other users. 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 Dermatitis of both feet Dysfunction of right hand Sleep apnea Gout Carpal tunnel syndrome History of gastroesophageal reflux (GERD) Surgical History No significant past surgical history Family History Other Family history of acute congestive heart failure Family history of diabetes mellitus type II Social History Smoking Status: Current every day smoker tobacco type: cigarettes packs per day: 1 alcohol intake: never substance use type: other current occupational status: employed and other Travel in the last 8 weeks: None household members: other housing: house caffeine: Yes ROS Obtained: Yes All systems reviewed & no additional complaints except as documented and Yes Systems reviewed as appropriate & no additional complaints except as documented Constitutional Constitutional: Reports system reviewed and no additional complaints, except as documented, Reports as per HPI and Reports headache(s) ENT Ears, Nose, Mouth, and Throat: Reports system reviewed and no additional complaints, except as documented, Reports as per HPI, Reports headache(s), Reports sinus pain and Reports sinus pressure Cardiovascular Cardiovascular: Reports system reviewed and no additional complaints, except as documented and Reports as per HPI Respiratory Respiratory: Reports system reviewed and no additional complaints, except as documented, Reports as per HPI, Reports chest congestion and Reports cough Gastrointestinal Gastrointestingal: Reports system reviewed and no additional complaints, except as documented and as per HPI Neurologic Neurologic: Reports headache(s) Physical Exam General General appearance: alert and in no apparent distress ENT ENT exam: Present mucous membranes moist Expanded ENT Exam Nose exam: Present sinus tenderness Throat exam: Present other (PND noted) Chest Chest inspection: Present normal inspection and symmetric chest wall rise Respiratory Respiratory exam: Present normal lung sounds bilaterally; Absent respiratory distress or wheezes Cardiovascular Cardiovascular exam: Present regular rate, normal rhythm and tachycardia Abdominal Exam Abdominal exam: Present soft and normal bowel sounds; Absent distention or tenderness Neurological Exam Neurological exam: Present alert, oriented X3 and normal gait Medical Decision Making Medical Records Screening: Per USPSTF and CDC recommendations, given the prevalence of disease in our region, it is our hospital?s policy to screen for HIV and viral Hepatitis for all patients aged 18 and over and those with ongoing risk factors. Cheko Inquiry Pt receiving controlled substance: No Cheko was queried for this patient: No Vital Signs: 02/13/24 15:50 Temperature 98.3 F Temperature Source Oral Pulse Rate [Left Brachial] 104 H Respiratory Rate 17 Blood Pressure [Left Arm] 168/93 H Blood Pressure Mean [Left Arm] 118 Blood Pressure Source [Left Arm] Automatic Cuff Blood Pressure Position [Left Arm] Sitting 02 Sat by Pulse Oximetry 100 Oxygen Delivery Method Room Air Medical Decision Narrative: Discussed CXR patient declined, patient states that he is driving therefore will do Toradol and Solumedrol to help with headache After medication patient states that headache is almost gone medication helped with headache
[2024-02-13] MEDS: KETOROLAC 60MG/2ML VIAL 60 MG IM (16:26)
[2024-02-13] MEDS: METHYLPREDNISOLONE SOD SUCC 125MG VIAL 125 MG IM (16:26)
[2024-02-13 16:45] VITALS: BP 168/93; PULSE 104; RESP 17; TEMP 36.8; O2SAT 100
== END 2024-02-13 16:49 | disposition home or self-care (01) ==
PROVIDERS: Emergency Provider Nurse Practitioner; PCP Internal Medicine
DX: J40 Bronchitis, not specified as acute or chronic (principal)
CPT/HCPCS: 96372; 99213; G0381; J1885; J2919

== ENCOUNTER 2024-03-13 13:06 | Outpatient (CLI) | payer OTHER, SELFPAY ==
--- NOTE | 2024-03-13 13:09 | CT_ITS ---
FINAL REPORT TECHNIQUE: Axial CT images of the face were obtained before and after the administration of IV contrast. Coronal and sagittal reformatted images were also obtained. This study was performed with techniques to keep radiation doses as low as reasonably achievable, (ALARA). Individualized dose reduction techniques using automated exposure control or adjustment of mA and/or kV according to the patient's size were employed. CLINICAL HISTORY: Sinusitis, treated but still has symptoms COMPARISON: None FINDINGS: There are multiple carious maxillary molars and premolars bilaterally. Lucency is seen surrounding multiple bilateral maxillary molars which is consistent with periapical abscesses. There is no evidence of mucosal thickening. There is no evidence of fracture.No soft tissue mass is seen. IMPRESSION: Findings consistent with periapical abscesses. No evidence of mucosal thickening. Reviewed, Interpreted and Dictated by Roman Lopez III, MD Transcribed by Almita Montano Authenticated and [facility]
[2024-03-13] MEDS: SODIUM CHLORIDE 0.9% 10ML SYR (RAD ONLY) 10 ML IV (13:30)
[2024-03-13] MEDS: IOPAMIDOL-370 (76%);100ML BOTTLE 75 ML IV (13:30)
== END 2024-03-13 23:59 | disposition home or self-care (01) ==
LOC: RAD 13:06
PROVIDERS: PCP Internal Medicine; Visit Provider Internal Medicine
DX: J32.9 Chronic sinusitis, unspecified (principal)
CPT/HCPCS: 70488; Q9967

== ENCOUNTER 2024-06-28 11:11 | Outpatient (CLI) | payer OTHER, SELFPAY ==
[2024-06-28 19:50] LABS: Basophils % 0.8 % (0.1-2.0); Eosinophils # 0.1 K/mm3 (0.0-0.4); Eosinophils % 3.3 % (0.1-12.0); Hematocrit 39.1 % (42.0-52.0); Hemoglobin 13.4 g/dL (14.1-18.0); Lymphocytes # 1.2 K/mm3 (0.7-4.5); Lymphocytes % 30.1 % (10-50); Mean Corpuscular HGB Conc 34.3 g/dL (31.8-35.4); Mean Corpuscular Volume 96.3 fl (80-94); Mean Platelet Volume 9.4 fl (7.4-10.4); Monocytes # 0.4 K/mm3 (0.1-1.0); Monocytes % 9.8 % (1.7-9.3); Neutrophils # 2.2 K/mm3 (1.8-7.8); Neutrophils % 55.7 % (37.0-80.0); Platelet Count 289 K/mm3 (142-424); Red Blood Count 4.06 M/mm3 (4.60-6.20); Red Cell Distribution Width 11.8 % (11.5-17.5)
[2024-06-28 19:51] LABS: Alanine Aminotransferase 43 U/L (12-78); Albumin Level 5.2 g/dl (3.5-5.0); Albumin/Globulin Ratio 1.9 (1.1-1.8); Alkaline Phosphatase 71 U/L (38-126); Anion Gap 14.3 mEq/L (5-15); Aspartate Amino Transferase 41 U/L (17-59); Blood Urea Nitrogen 12 mg/dl (9-20); Calcium 9.3 mg/dl (8.4-10.2); Carbon Dioxide 26 mmol/L (22.0-30.0); Chloride 103 mmol/L (98-107); Cholesterol 194 mg/dl (140-200); Estimated Glomerular Filt Rate 106 ml/min (>60); GFR (African American) 128 ML/MIN (>60); Globulin 2.8 g/dL (1.3-3.2); Glucose 138 mg/dl (74-100); HDL Cholesterol 49 mg/dl (40-60); Potassium 4.3 mmoL/L (3.5-5.1); Sodium 139 mmol/L (136-145); Triglycerides 233 mg/dl (30-150); VLDL Cholesterol 47 mg/dL (0-40)
[2024-06-28 20:03] LABS: Direct LDL Cholesterol 95.65 mg/dL (100-129)
[2024-06-28 20:22] LABS: Thyroid Stimulating Hormone 1.75 uIU/mL (0.465-4.68)
[2024-06-29 10:57] LABS: Hemoglobin A1C 5.2 % (4.0-6.0)
== END 2024-06-28 23:59 | disposition home or self-care (01) ==
LOC: LAB.DROPOF 07-03 10:54
PROVIDERS: Family Medicine; PCP Internal Medicine; Visit Provider Internal Medicine
DX: Z00.00 Encounter for general adult medical examination without abnormal findings (principal); I10 Essential (primary) hypertension
CPT/HCPCS: 80053; 80061; 83036; 84443; 85025

== ENCOUNTER 2024-10-25 16:30 | Outpatient (CLI) | payer OTHER, SELFPAY ==
[2024-10-25 19:49] LABS: Hematocrit 37.9 % (42.0-52.0); Hemoglobin 12.6 g/dL (14.1-18.0); Immature Granulocytes % 0.2 %; Mean Corpuscular HGB Conc 33.2 g/dL (31.8-35.4); Mean Corpuscular Hemoglobin 31.8 pg (27.0-31.2); Mean Corpuscular Volume 95.7 fl (80-94); Nucleated Red Blood Cells % 0 %; Platelet Count 293 K/mm3 (142-424); Red Blood Count 3.96 M/mm3 (4.60-6.20); Red Cell Distribution Width-SD 40.6 fL; White Blood Count 5.1 K/mm3 (4.8-10.8)
[2024-10-25 20:42] LABS: Alanine Aminotransferase 33 U/L (12-78); Albumin Level 5.3 g/dl (3.5-5.0); Albumin/Globulin Ratio 1.5 (1.1-1.8); Alkaline Phosphatase 74 U/L (38-126); Anion Gap 19.4 mEq/L (5-15); Aspartate Amino Transferase 34 U/L (17-59); Bilirubin,Total 0.8 mg/dl (0.2-1.3); Blood Urea Nitrogen 17 mg/dl (9-20); Calcium 10.1 mg/dl (8.4-10.2); Carbon Dioxide 26 mmol/L (22.0-30.0); Chloride 97 mmol/L (98-107); Cholesterol 220 mg/dl (140-200); Creatinine,Serum 1.00 mg/dl (0.66-1.25); Estimated Glomerular Filt Rate 82 ml/min (>60); GFR (African American) 99 ML/MIN (>60); Globulin 3.5 g/dL (1.3-3.2); Glucose 83 mg/dl (74-100); HDL Cholesterol 54 mg/dl (40-60); Potassium 4.4 mmoL/L (3.5-5.1); Sodium 138 mmol/L (136-145); Total Protein,Serum 8.8 g/dl (6.3-8.2); Triglycerides 167 mg/dl (30-150); Uric Acid 8.9 mg/dl (3.5-8.5)
--- OUTSIDE RECORDS SUMMARY | 2024-10-26 10:16 | XMS_ITS | Clinical Summary ---
Author Organization [facility] Address [address] [place] [address] Care Team Providers Care Production Laborer Name Role Phone Provider, No Known Primary Care Provider Unavail able Allergies No known active allergies Medications allopurinol (ZYLOPRIM) 100 MG tablet 04/20/2018 Active COLCRYS 0.6 MG tablet 04/24/2018 Active methadone (DOLOPHINE) 10 MG tablet Take 10 mg by mouth Every 6 (Six) Hours As Needed for Moderate Pain , Active cephalexin (KEFLEX) 500 MG capsuleIndicati ons:Laceration of right index finger with foreign body without damage to nail, initial encounter Take 1 capsule by mouth 3 (Three) Times a Day. 21 capsule 05/02/2018 Active Immunizations Immunization Administration Dates Next Due Tdap 05/02/2018 Social History Tobacco Use Types Packs/Day Years Used Date Smoking Tobacco: Every Day Smokeless Tobacco: Current Alcohol Use Standard Drinks/Week Comments Yes 0 (1 standard drink = 0.6 oz pur e alcohol) AUDIT-C Answer Date Recorded Frequency of Alcohol Consumption Never 05/03/2018 Average Number of Drinks Not on file 019 Frequency of Binge Drinking Not on file 04/12 Abuse Screen Answer Date Recorded Unsafe at Home or Work/School Not on file Feels Threatened by Someone? Not on file 03/2023 Does Anyone Keep You from Co ntacting Others or Doint Things Outside the Home? Not on file 01/20/2023 Physical Sign of Abuse Present Not on file 1 Housing Stability Answer Date Recorded Current Living Arrangements Not on file 01/09 Potentially Unsafe Housing Conditions Not on glenny e 01/20/2023 Family and Community Support Answer Norris e Recorded Help with Day-to-Day Activities Not on file 01/20/2023 Lonely or Isolated Not on file 01/20/2023 Employment Answer Date Recorded Do you want help finding or keeping work or a warren b? Not on file 01/20/2023 Disabilities Answer Date Recorded Concentrating, Remembering, or Making Decisions Difficulty Not on file 01/20/2023 Doing Errands Independently Difficulty Not on fi le 01/20/2023 Education Answer Date Recorded Help with school or training? Not on file Preferred Language Not on file 01/20/2023 Sex and Gender Information Value Date Recorded Sex Assigned at Not on file Legal Sex Male 1:46 PM EST Gender Identity Not on file Sexual Orientation Not on file Last Filed Vital Signs Vital Sign Reading Time Taken Comments Blood Pressure 166/107 05/02/2018 2:09 PM EST Pulse 96 05/02/2018 2:09 PM EST Temperature 36.1 C (96.9 F) 05/02/2018 2:09 PM EST Respiratory Rate 16 05/02/2018 2:09 PM EST Oxygen Saturation 97% 05/02/2018 2:09 PM EST Inhaled Oxygen Concentration - - Weight 88 kg (194 lb) 05/02/2018 2:09 PM EST Height 177.8 cm (5' 10 ) 05/02/2018 2:09 PM EST Body Mass Index 27.84 05/02/2018 2:09 PM EST Plan of Treatment Health Maintenance Due Date Last Done Comments ANNUAL PHYSICAL 1980 HEPATITIS C SCREENING 1980 COVID-19 Vaccine (2023-2 5 season) 2023 INFLUENZA VACCINE 01/09/2025 TDAP/TD VACCINES (2 - Td or Tdap) 05/02/2028 019 Pneumococcal Vaccine 0-49 Aged Out No longer eligible based on patient's age to complete this topic Insurance [employer] Care Teams Production Laborer Relationship Specialty Start Date End Date Provider, [place] [address] PCP - General 05/02/18
--- OUTSIDE RECORDS SUMMARY | 2024-10-26 10:16 | XMS_ITS | Encounter Summary ---
Author Organization Healthcare Address [address] [id number] Care Team Providers Care Grease Machine Worker Name Role Phone Arik Mckeon MD Primary Care Provider [phone] Encounter Details Date Type Department Care Team (Late st Contact Info) Description 06/17/2023 Lab Requisition [facility] [address] [place] [address] Lauro Hawkins MD [address] [facility] [address] [place] [address] Encounter for general adult medical examination without abnormal findings Social History Tobacco Use Types Packs/Day Years Used Date Smoking Tobacco: Every Day Cigarettes Smokeless Tobacco: Current Chew Alcohol Use Standard Drinks/Week Comments Yes 21 (1 standard drink = 0.6 oz pu re alcohol) Sex and Gender Information Value Date Recorded Sex Assigned at Not on file Legal Sex Male 11:45 AM EST Gender Identity Not on file Sexual Orientation Not on file documented as of this encounter Plan of Treatment Not on file documented as of this encounter Procedures Procedure Name Priority Date/Time Associated Diagnosis Comments BODY FLUID CELL COUNT W/ MANUAL DIFFERENTIAL Routine 06/17/2023 8:53 PM EST Encounter for general adult medical examination without abnormal findings BODY FLUID, CYTOSPIN, PATHOLOGIST INTERPRETATION Routine 06/17/2023 8:53 PM EST Encounter for general adult medical examination without abnormal findings JOINT FLUID CRYSTALS Routine 06/17/2023 8:53 PM EST Encounter for general adult medical examination without abnormal findings documented in this encounter Results * Body fluid, cytospin, pathologist interpretation (06/17/2023 8:53 PM EST) Specimen Type Joint Fluid 06/20/2023 4:55 PM EDT [facility] Specimen Source, Body Fluid 06/20/2023 4:55 PM EDT [facility] Clinical Diagnosis, Body Fluid History not provided 06/20/2023 4:55 PM EDT [facility] Interpretation, Body Fluid Acute inflammatory cells Correlation with microbiology studies recommended Light blood A resident was involved in the service. I attest I examined the relevant preparations for the specimens and confirmed the diagnosis or interpretation. 06/20/2023 4:55 PM EDT [facility] Pathologist Signature, Body Fluid 06/20/2023 4:55 PM EDT [facility] Comment:Reviewed by: Almita franco MD LAB CP ASR DISCLAIMER Yes 06/20/2023 4:55 PM EDT [facility] Joint Fluid 06/17/2023 8:53 PM EST 06/17/2023 10:25 PM EST Lauro Hawkins MD LAB BODY FLUIDS AND STOOLS COLLIN RUIZ Final Result [facility] [address] [place] [address] * (ABNORMAL) Body Fluid Cell Count w/ Diff (06/17/2023 8:53 PM EST) Color, Body fluid Yellow LAB HEMATOLOGY METHOD 06/18/2023 12:40 AM EST [facility] Appearance, Body fluid Cloudy(A) LAB HEMATOLOGY METHOD 06/18/2023 12:40 AM EST [facility] Volume, Body fluid 4 cc LAB HEMATOLOGY METHOD 06/18/2023 12:40 AM EST [facility] Fluid Container SPECIMEN RECEIVED IN EDTA TUBE LAB HEMATOLOGY METHOD 06/18/2023 12:40 AM EST [facility] Red Blood Cell Count, Body fluid 3,000 uL LAB HEMATOLOGY METHOD 06/18/2023 12:40 AM EST [facility] Total Nucleated Cell Count, Body fluid 15,033 uL LAB HEMATOLOGY METHOD 06/18/2023 12:40 AM EST [facility] Neutrophils %, Body fluid 95 % LAB HEMATOLOGY METHOD 06/18/2023 12:40 AM EST [facility] Lymphocytes %, Body fluid 0 % LAB HEMATOLOGY METHOD 06/18/2023 12:40 AM EST [facility] Monocytes/Macro phages %, Body fluid 5 % LAB HEMATOLOGY METHOD 06/18/2023 12:40 AM EST [facility] Eosinophils %, Body fluid 0 % LAB HEMATOLOGY METHOD 06/18/2023 12:40 AM EST [facility] Basophils %, Body fluid 0 % LAB HEMATOLOGY METHOD 06/18/2023 12:40 AM EST [facility] Lining/Mesothel ial Cells %, Body fluid 0 % LAB HEMATOLOGY METHOD 06/18/2023 12:40 AM EST [facility] Neutrophils Absolute (PMN), Body fluid 14,281 uL LAB HEMATOLOGY METHOD 06/18/2023 12:40 AM EST [facility] Lymphocytes Absolute, Body fluid 0 uL LAB HEMATOLOGY METHOD 06/18/2023 12:40 AM EST [facility] Monocytes/Macro phages Absolute, Body fluid 752 uL LAB HEMATOLOGY METHOD 06/18/2023 12:40 AM EST [facility] Eosinophils Absolute, Body fluid 0 uL LAB HEMATOLOGY METHOD 06/18/2023 12:40 AM EST [facility] Basophils Absolute, Body fluid 0 uL LAB HEMATOLOGY METHOD 06/18/2023 12:40 AM EST [facility] Lining/Mesothel ial Cells Absolute, Body fluid 0 uL LAB HEMATOLOGY METHOD 06/18/2023 12:40 AM EST [facility] Comment, Body fluid NONE LAB HEMATOLOGY METHOD 06/18/2023 12:40 AM EST [facility] Comment:This is an appended report. These results have been appended to a previously preliminary verified report. Joint Fluid 06/17/2023 8:53 PM EST 06/17/2023 10:25 PM EST us Lauro Hawkins MD LAB BODY FLUIDS AND STOOLS ORDERABLES NO SPECIMEN TYPE/SOURCE Final Result [facility] [address] [place], [place] [id number] * Synovial fluid, crystal (06/17/2023 8:53 PM EST) Crystals, Joint Fluid No Crystals Seen No Crystals Present 06/18/2023 12:53 AM EST [facility] Joint Fluid 06/17/2023 8:53 PM EST 06/17/2023 10:25 PM EST us Lauro Hawkins MD LAB BODY FLUIDS AND STOOLS COLLIN RUIZ Final Result [facility] [address] [place] [address] documented in this encounter Visit Diagnoses Diagnosis Encounter for general adult medical examination without abnormal findings documented in this encounter Additional Health Concerns Assessment Noted Time A fall risk assessment has been complete d for the patient 06/17/2021 12:11 PM EST documented as of this encounter Care Teams Grease Machine Worker Relationship Specialty Start Date End Date Arik Mckeon MD [address] [place] [address] PCP - General 06/17/21 documented as of this encounter
--- OUTSIDE RECORDS SUMMARY | 2024-10-26 10:16 | XMS_ITS | Clinical Summary ---
Author Organization Healthcare Address [address] [place] [address] Care Team Providers Care Railway Switchman Name Role Phone Arik Mckeon MD Primary Care Provider [phone] Allergies No known active allergies Medications HYDROcodone-abdi taminophen (Bandana) 5-325 MG tablet 1 TABLET BY MOUTH THREE TIMES DAILY NEEDED FOR PAIN MAY CAUSE DROWSINESS 2 Active gabapentin (Neurontin) 600 MG tablet Take 600 mg by mouth 3 (three) times a day. 2 Active colchicine 0.6 MG tablet 1 Active lisinopril 10 MG tablet Take 10 mg by mouth 1 (one) time each day. 2 Active allopurinol (Zyloprim) 100 MG tablet 1 Active Immunizations Immunization Administration Dates Next Due Tdap 08/11/2021 Social History Tobacco Use Types Packs/Day Years [...] Sign Reading Time Taken Comments Blood Pressure 123/81 08/12/2021 1:22 AM EDT Pulse 88 08/12/2021 1:22 AM EDT Temperature 36.7 C (98 F) 08/12/2021 1:22 AM EDT Respiratory Rate 15 08/12/2021 1:22 AM EDT Oxygen Saturation 95% 08/12/2021 1:22 AM EDT Inhaled Oxygen Concentration - - Weight 90.3 kg (199 lb) 06/17/2021 12:04 PM EST Height 180.3 cm (5' 11 ) 06/17/2021 12:04 PM EST Body Mass Index 27.75 06/17/2021 12:04 PM EST Plan of Treatment Health Maintenance Due Date Last Done Comments [facility]-Depression Screening 1980 [facility]-Infant/Child/Adol SDOH Screenings 1980 [facility]-Varicella Vaccines (1 of 2 - 13+ 2-dose series) 1993 HPV Vaccines (1 - Male 3-dose series) 11/30/1995 [facility]- SDOH Screenings 1998 [facility]-Adult SDOH Screenings 1998 [facility]-Hepatitis B Vaccines (2 of 3 - 19+ 3-dose series) 11/07/2018 10/10/2018 [id number] Vaccine (1 - 2023- season) 2023 [facility]-Influenza Vaccine (#1) 2024 [facility]-Zoster Vaccines (1 of 2) 2030 [facility]-DTaP,Tdap,and Td Vaccines (3 - Td or Tdap) 08/12/2031 08/11/2021, 05/02/2018 [facility]-Hepatitis A Vaccines Aged Out 08/01/2018 No longer eligible based on patient's age to complete this topic [facility]-HIB Vaccines Aged Out No longer e ligible based on patient's age to complete this topic [facility]-IPV Vaccines Aged Out No longer e ligible based on patient's age to complete this topic [facility]-Pneumococcal Vaccine: Pediatrics (0 to 5 Years) and At-Risk Patients (6 to 49 Years) Aged Out No longer eligible b ased on patient's age to complete this topic [facility]-Rotavirus Vaccines Aged Out No lo nger eligible based on patient's age to complete this topic Insurance AETNA [facility] MEDICAID [employer] [facility] MEDICAID [facility] Care Teams Railway Switchman Relationship Specialty Start Date End Date Arik Mckeon MD [address] [place] [id number] PCP - General 06/17/21
--- OUTSIDE RECORDS SUMMARY | 2024-10-26 10:16 | XMS_ITS | Encounter Summary ---
Author Organization [facility] Address [address] [place] [address] Care Team Providers Care Stoner Hand Name Role Phone Arik Mckeon MD Primary Care Provider [phone] Reason for Referral * Consultation (Routine) - Closed Specialty Diagnoses / Procedures Referred By Contac t Referred To Contact Neurosurgery Diagnoses Lumbar stenosis without neurogenic claudication Lumbar degenerative disc disease Arik Mckeon MD [address] [place] [address] Phone: tel: fax: Referral ID Status Reason Start Date Expiration Date V isits Requested Visits Authorized [id number] Closed Specialty Services Required 05/11/2021 11/10/2022 1 1 Encounter Details Date Type Department Care Team (Late st Contact Info) Description 05/11/2021 [facility] [address] [place] [address] Arik Mckeon MD [address] [place] [address] Lumbar stenosis without neurogenic claudication (Primary Dx); Lumbar degenerative disc disease Social History Tobacco Use Types Packs/Day Years Used Date Smoking Tobacco: Never Assessed Sex and Gender Information Value Date Recorded Sex Assigned at Not on file Legal Sex Male 11:45 AM EST Gender Identity Not on file Sexual Orientation Not on file documented as of this encounter Plan of Treatment Scheduled Referrals Name Type Priority Associated Diagnoses Orde r Schedule Ambulatory Referral to Neurosurgery Outpatient Referral Routine Lumbar stenosis without neurogenic claudication Lumbar degenerative disc disease Expected: 05/11/2021 (Approximate), Expires: 08/08/2021 documented as of this encounter Visit Diagnoses Diagnosis Lumbar stenosis without neurogenic claudication- Primary Lumbar degenerative disc disease documented in this encounter Care Teams Stoner Hand Relationship Specialty Start Date End Date Arik Mckeon MD [address] [place] [address] PCP - General 06/17/21 documented as of this encounter
== END 2024-10-25 23:59 | disposition home or self-care (01) ==
LOC: LAB.DROPOF 10-26 10:11
PROVIDERS: PCP Family Medicine; Visit Provider Family Medicine
DX: E78.5 Hyperlipidemia, unspecified (principal); M10.9 Gout, unspecified
CPT/HCPCS: 80053; 80061; 84550; 85025

== ENCOUNTER 2025-01-31 16:24 | Outpatient (CLI) | payer OTHER, SELFPAY ==
[2025-01-31 19:51] LABS: Albumin Level 4.5 g/dl (3.5-5.0); Chloride 102 mmol/L (98-107); Potassium 4.1 mmoL/L (3.5-5.1); Sodium 136 mmol/L (136-145)
[2025-01-31 19:53] LABS: Alanine Aminotransferase 32 U/L (12-78); Aspartate Amino Transferase 31 U/L (17-59); Blood Urea Nitrogen 12 mg/dl (9-20); Creatinine,Serum 1.10 mg/dl (0.66-1.25); Estimated Glomerular Filt Rate 73 ml/min (>60); GFR (African American) 88 ML/MIN (>60)
[2025-01-31 19:54] LABS: Albumin/Globulin Ratio 1.3 (1.1-1.8); Alkaline Phosphatase 84 U/L (38-126); Anion Gap 13.1 mEq/L (5-15); Bilirubin,Total 0.3 mg/dl (0.2-1.3); Calcium 8.9 mg/dl (8.4-10.2); Carbon Dioxide 25 mmol/L (22.0-30.0); Cholesterol 217 mg/dl (140-200); Globulin 3.4 g/dL (1.3-3.2); Glucose 89 mg/dl (74-100); HDL Cholesterol 44 mg/dl (40-60); Total Protein,Serum 7.9 g/dl (6.3-8.2); Uric Acid 7.8 mg/dl (3.5-8.5)
[2025-01-31 19:58] LABS: Triglycerides 503 mg/dl (30-150)
--- OUTSIDE RECORDS SUMMARY | 2025-02-01 09:47 | XMS_ITS | Clinical Summary ---
Author Organization Healthcare Address [address] [place] [address] Care Team Providers Care Roofing Sales Representative Name Role Phone Arik Mckeon MD Primary Care Provider [phone] Allergies No known active allergies Medications HYDROcodone-abdi taminophen (Chandler) 5-325 MG tablet 1 TABLET BY MOUTH [...] of 2 - 13+ 2-dose series) 1993 [facility]- SDOH Screenings 1998 [facility]-Adult SDOH Screenings 1998 HPV Vaccines (1 - 3-dose SCDM series) 11/30/2007 [facility]-Hepatitis B Vaccines (2 of 3 - 19+ 3-dose series) 11/07/2018 10/10/2018 [id number] Vaccine (1 - 2023- season) 2024 [facility]-Influenza Vaccine (#1) 2024 [facility]-Zoster Vaccines (1 [...] age to complete this topic Insurance AETNA [facility] MEDICAID [employer] MEDICAID [facility] Care Teams Roofing Sales Representative Relationship Specialty Start Date End Date Arik Mckeon MD [address] [place], [place] [phone] (Work) PCP - General 06/17/21
--- OUTSIDE RECORDS SUMMARY | 2025-02-01 09:47 | XMS_ITS | Encounter Summary ---
Author Organization Healthcare Address [address] [id number] Care Team Providers Care Emergency Medicine Medical Director Name Role Phone Arik Mckeon MD Primary Care Provider Encounter Details Date Type Department Care Team (Late st Contact Info) Description 06/17/2023 Lab Requisition [facility] [address] [place] [address] Lauro Hawkins MD [address] [place] [address] Encounter for general adult medical examination without [...] Type Joint Fluid 06/20/2023 4:55 PM EDT [facility] Specimen Source, Body Fluid 06/20/2023 4:55 PM EDT [facility] Clinical Diagnosis, Body Fluid History not provided 06/20/2023 4:55 PM EDT [facility] Interpretation, Body Fluid Acute inflammatory cells Correlation with microbiology studies recommended Light blood A resident was involved in the service. I attest I examined the relevant preparations for the specimens and confirmed the diagnosis or interpretation. 06/20/2023 4:55 PM EDT [facility] Pathologist Signature, Body Fluid 06/20/2023 4:55 PM EDT [facility] Comment:Reviewed by: Almita franco MD LAB CP ASR DISCLAIMER Yes 06/20/2023 4:55 PM EDT [facility] Joint Fluid 06/17/2023 8:53 PM EST 06/17/2023 10:25 PM EST us Lauro Hawkins MD LAB BODY FLUIDS AND STOOLS COLLIN RUIZ Final Result [facility] [address] [place] [address] * (ABNORMAL) Body Fluid Cell Count w/ Diff (06/17/2023 8:53 PM EST) Color, Body fluid Yellow LAB HEMATOLOGY METHOD 06/18/2023 12:40 AM EST [facility] Appearance, Body fluid Cloudy(A) LAB HEMATOLOGY METHOD 06/18/2023 12:40 AM EST [facility] Volume, Body fluid 4 cc LAB HEMATOLOGY METHOD 06/18/2023 12:40 AM EST [facility] Fluid Container SPECIMEN RECEIVED IN EDTA TUBE LAB HEMATOLOGY METHOD 06/18/2023 12:40 AM EST [facility] Red Blood Cell Count, Body fluid 3,000 uL LAB HEMATOLOGY METHOD 06/18/2023 12:40 AM EST [facility] Total Nucleated Cell Count, Body fluid 15,033 uL LAB HEMATOLOGY METHOD 06/18/2023 12:40 AM EST [facility] Neutrophils %, Body fluid 95 % LAB HEMATOLOGY METHOD 06/18/2023 12:40 AM EST [facility] Lymphocytes %, Body fluid 0 % LAB HEMATOLOGY METHOD 06/18/2023 12:40 AM EST [facility] Monocytes/Macro phages %, Body fluid 5 % LAB HEMATOLOGY METHOD 06/18/2023 12:40 AM EST [facility] Eosinophils %, Body fluid 0 % LAB HEMATOLOGY METHOD 06/18/2023 12:40 AM EST [facility] Basophils %, Body fluid 0 % LAB HEMATOLOGY METHOD 06/18/2023 12:40 AM EST [facility] Lining/Mesothel ial Cells %, Body fluid 0 % LAB HEMATOLOGY METHOD 06/18/2023 12:40 AM EST [facility] Neutrophils Absolute (PMN), Body fluid 14,281 uL LAB HEMATOLOGY METHOD 06/18/2023 12:40 AM EST [facility] Lymphocytes Absolute, Body fluid 0 uL LAB HEMATOLOGY METHOD 06/18/2023 12:40 AM EST [facility] Monocytes/Macro phages Absolute, Body fluid 752 uL LAB HEMATOLOGY METHOD 06/18/2023 12:40 AM EST [facility] Eosinophils Absolute, Body fluid 0 uL LAB HEMATOLOGY METHOD 06/18/2023 12:40 AM EST [facility] Basophils Absolute, Body fluid 0 uL LAB HEMATOLOGY METHOD 06/18/2023 12:40 AM EST [facility] Lining/Mesothel ial Cells Absolute, Body fluid 0 uL LAB HEMATOLOGY METHOD 06/18/2023 12:40 AM EST [facility] Comment, Body fluid NONE LAB HEMATOLOGY METHOD 06/18/2023 12:40 AM EST [facility] Comment:This is an appended report. These results have been appended to a previously preliminary verified report. Joint Fluid 06/17/2023 8:53 PM EST 06/17/2023 10:25 PM EST us Lauro Hawkins MD LAB BODY FLUIDS AND STOOLS ORDERABLES NO SPECIMEN TYPE/SOURCE Final Result [facility] [address] [place], [place] [id number] * Synovial fluid, crystal (06/17/2023 8:53 PM EST) Crystals, Joint Fluid No Crystals Seen No Crystals Present 06/18/2023 12:53 AM EST [facility] Joint Fluid 06/17/2023 8:53 PM EST 06/17/2023 10:25 PM EST Lauro Hawkins MD LAB BODY FLUIDS AND STOOLS COLLIN RUIZ Final Result [facility] [address] [place] [address] documented in this encounter Visit Diagnoses Diagnosis Encounter for general adult medical examination without abnormal findings documented in this encounter Additional Health Concerns Assessment Noted Time A fall risk assessment has been complete d for the patient 06/17/2021 12:11 PM EST documented as of this encounter Care Teams Emergency Medicine Medical Director Relationship Specialty Start Date End Date Arik Mckeon MD [address] [place] [address] PCP - General 06/17/21 documented as of this encounter
--- OUTSIDE RECORDS SUMMARY | 2025-02-01 09:47 | XMS_ITS | Encounter Summary ---
Author Organization [facility] Address [address] [place] [address] Care Team Providers Care Diamond Finishing Supervisor Name Role Phone Arik Mckeon MD Primary Care Provider [phone] Reason for Referral * Consultation (Routine) - Closed Specialty Diagnoses / Procedures Referred By Contac t Referred To Contact Neurosurgery Diagnoses Lumbar stenosis without neurogenic claudication Lumbar degenerative disc disease Arik Mckeon MD [address] [place] [address] Phone: tel: fax: Referral ID Status Reason Start Date Expiration Date V isits Requested Visits Authorized [id number] Closed Specialty Services Required 05/11/2021 11/10/2022 1 1 Encounter Details Date Type Department Care Team (Late st Contact Info) Description 05/11/2021 [facility] [address] [place] [address] Arik Mckeon MD [address] [place] [address] Lumbar stenosis without neurogenic claudication (Primary Dx); [...] disease documented in this encounter Care Teams Diamond Finishing Supervisor Relationship Specialty Start Date End Date Arik Mckeon MD [address] [place] [address] PCP - General 06/17/21 documented as of this encounter
--- OUTSIDE RECORDS SUMMARY | 2025-02-01 09:47 | XMS_ITS | Clinical Summary ---
[facility] Organization [facility] Address [address] [place] [address] Care Team Providers Care Alignment Technician Name Role Phone Provider, No Known Primary [...] ANNUAL PHYSICAL 1980 HEPATITIS C SCREENING 1980 INFLUENZA VACCINE 11/09/2024 TDAP/TD VACCINES (2 - Td or Tdap) 05/02/2028 019 Pneumococcal Vaccine 0-49 Aged Out No longer eligible based on patient's age to complete this [place] [address] Care Teams Alignment Technician Relationship Specialty Start Date End Date Provider, [place] [address] PCP - General 05/02/18
== END 2025-01-31 23:59 ==
LOC: LAB.DROPOF 02-01 09:45
PROVIDERS: PCP Family Medicine; Visit Provider Family Medicine
DX: E78.5 Hyperlipidemia, unspecified (principal); M10.9 Gout, unspecified; I10 Essential (primary) hypertension
CPT/HCPCS: 80053; 80061; 84550